=== PATIENT | male | born 1955 | race Caucasian/White ===

== ENCOUNTER 2022-08-15 17:53 | Emergency (ER) | payer MEDICARE, MEDICAID, SELFPAY ==
[2022-08-15] VITALS (18 sets, daily range): BP systolic 125–150; BP diastolic 64–85; PULSE 67–98; RESP 12–24; TEMP 36.4; O2SAT 94–98
--- NOTE | ~2022-08-15 | XR_ITS ---
EXAMINATION: XR chest 2V DATE: 08/15/2022 18:45 INDICATION: Chest pain TECHNIQUE: frontal and lateral views of the chest were obtained. COMPARISON: None FINDINGS: Mild increased interstitial pattern in the bilateral lower lung zones with some bronchial wall thicke celina which could be due to bronchitis or mild pulmonary edema. No other airspace opacities, pleural e ffusion or pneumothorax. The cardiomediastinal silhouette is normal. Left pectoral implantable cardia c monitor. IMPRESSION: 1. Mild increased interstitial pattern with some bronchial wall thickening in the lower lung zones wh ich could be due to bronchitis or mild pulmonary edema. Reviewed, dictated and finalized at location A. IMPRESSION: 1. Mild increased interstitial pattern with some bronchial wall thickening in t he lower lung zones which could be due to bronchitis or mild pulmonary edema.
--- NOTE | ~2022-08-15 | CT_ITS ---
EXAMINATION: CTA chest PE protocol DATE: 08/15/2022 20:39 INDICATION: Chest pain, shortness of breath and elevated d-dimer. TECHNIQUE: Computed tomography (CT) pulmonary angiogram of the chest was performed with 100 mL Omnipa que-350 intravenous contrast. Additional 3D reconstructions utilizing coronal maximum intensity proje ction (MIP) were performed. The dose-length product was 824.07 mGy-cm. COMPARISON: None FINDINGS: Excellent contrast opacification of the pulmonary arteries. There is mild streak artifact from dense contrast in the superior vena cava and right atrium. Minimal scattered respiratory motion artifact wh ich does not limit evaluation. No pulmonary embolism. Calcified right lower lobe nodule and calcified mediastinal lymph node consistent with old granulomatous disease. Mild dependent atelectasis in the right upper and bilateral lower lobes. No pneumonia, pulmonary edema, pleural effusion or pneumothora x. Heart size is normal. Atherosclerotic coronary artery calcifications. No pericardial effusion. Tho racic aorta is normal in caliber with no dissection. Small amount of fluid in the mid esophagus which could be related to reflux. No pathologically enlarged thoracic lymphadenopathy. Cholecystectomy cli ps the gallbladder fossa. Suture line along the proximal colon. Mild thoracic dextrocurvature with mi ld to moderate spondylosis. IMPRESSION: 1. No pulmonary embolism or other acute cardiopulmonary disease. Reviewed, dictated and finalized at location A.
--- NOTE | 2022-08-15 18:15 | ECG_ITS ---
Measurements Intervals [place] Rate: 67 P: 58 IL: 164 QRS: -38 QRSD: 112 T: 46 QT: 370 QTc: 391 Interpretive Statements SINUS RHYTHM MARKED LEFT AXIS DEVIATION [QRS AXIS < -30] NO PREVIOUS ECG AVAILABLE FOR COMPARISON Electronically Signed On 08-15-2022 18:56:13 CDT by Gayle Mcdonnell M.D.
--- NOTE | 2022-08-15 18:19 | ED.CHESTPAIN ---
HPI - Chest Pain General Chief Complaint: Chest Pain <NEETU Patel Last Filed: 08/16/22 01:10> Stated Complaint: CP and SOB <NEETU Patel Last Filed: 08/16/22 01:10> Time Seen by Provider: 08/15/22 18:12 <NEETU Patel Last Filed: 08/16/22 01:10> Source: patient <NEETU Patel Last Filed: 08/16/22 01:10> Mode of arrival: EMS <NEETU Patel Filed: 08/16/22 01:10> Limitations: no limitations <NEETU Patel Last Filed: 08/16/22 01:10> History of Present Illness HPI narrative: Patient is a 66 y/o male who presents to the ED via EMS with c/o CP. Patient reports he was sitting down watching TV approximately 1 hour prior to arrival when he developed midsternal and left-sided chest pain along w/ shortness of breath. He states pain radiated through to his back and left shoulder. He did not try anything for the pain but was given nitroglycerin by EMS which did not improve his pain. Patient states having a similar pain 1 year ago when he reportedly had an IA and CVA. Patient does not follow with a roll skinner. He also reported having some epigastric abdominal pain, but denied nausea, vomiting, fevers, recent cough or cold symptoms, pain or new swelling in legs. Patient is a resident of [facility]. Hx of COPD, chronically on 3L NC. <NEETU Patel Last Filed: 08/16/22 01:10> Related Data Allergies/Adverse Reactions: Allergies Allergy/AdvReac Type Severity Reaction Status Date / Time aspirin Allergy Rash Verified 08/15/22 18:17 ibuprofen Allergy Rash Verified 08/15/22 20:10 Penicillins Allergy Rash Verified 08/15/22 18:17 Sulfa (Sulfonamide Allergy Rash Verified 08/15/22 18:17 Antibiotics) <NEETU Patel Last Filed: 08/16/22 01:10> Review of Systems Review of Systems: CONSTITUTIONAL: Denies fever, chills, or sweats. ENT: Denies rhinorrhea, congestion, sore throat, or otalgia. CARDIOVASCULAR: Reports L sided CP. Denies palpitations or BLE edema. RESPIRATORY: Reports dyspnea. Denies cough. GASTROINTESTINAL: Reports epigastric pain. Denies nausea, vomiting, or diarrhea. MUSCULOSKELETAL: Reports back pain and left shoulder pain from CP. <Mohini Jimenez PA-C - Last Filed: 08/16/22 01:10> All systems reviewed & are unremarkable except as noted in HPI and below <Mohini Jimenez PA-C - Last Filed: 08/16/22 01:10> [facility], LAT[facility] Past Medical History Medical History: Medical History (Updated 08/17/22 @ 00:00 by Matthew Taylor) Chronic respiratory failure with hypoxia COPD (chronic obstructive pulmonary disease) Coronary artery disease CVA (cerebral vascular accident) Dementia GERD (gastroesophageal reflux disease) HLD (hyperlipidemia) HTN (hypertension) On home O2 <Mohini Jimenez PA-C - Last Filed: 08/16/22 01:10> Surgical History Surgical History: Surgical History (Updated 08/15/22 @ 22:45 by Mohini Jimenez PA-C) History of coronary artery stent placement <Mohini Jimenez PA-C - Last Filed: 08/16/22 01:10> Social History Social History: Social History (Updated 08/15/22 @ 22:45 by Mohini Jimenez PA-C) Smoking status: Former smoker Living arrangements: assisted living <Mohini Jimenez PA-C - Last Filed: 08/16/22 01:10> Exam Narrative: GENERAL: Well appearing, morbidly obese, non-toxic, in no acute distress. HEAD: Normocephalic, atraumatic. NECK: Supple. No adenopathy, no masses. RESPIRATORY: Airway patent, respirations nonlabored. Clear to auscultation bilaterally, no rales, rhonchi, wheezing. No distress on 3L NC. CARDIOVASCULAR: Regular rate and rhythm without murmurs, rubs, or gallops. Peripheral pulses 2+ and equal bilaterally. ABDOMINAL: Soft, no significant tenderness to palpation. Nondistended, no hepatosplenomegaly. Normoactive BS. MUSCULOSKELETAL: Moves all extremiti
--- NOTE | 2022-08-15 18:56 | PC.NURSE ---
Addendum entered by Pamela Recinos RN 08/15/22 18:58: MD informed. Original Note: Labs were being drawn on pt. Vein blew. Pt refused to be stuck again to get IV access or further labs.
[2022-08-15 19:24] LABS: Basophils Percent Auto 0.5 % (0.2-1.2); Eosinophils Absolute Auto 0.6 K/mm3 (0-0.3); Eosinophils Percent Auto 6.9 % (0-4.4); Immature Granulocyte Absolute 0.03 K/mm3 (0.00-0.031); Immature Granulocyte Percent A 0.4 % (0-0.5); Lymphocytes Absolute Auto 1.21 K/mm3 (0.9-3.2); Lymphocytes Percent Auto 14.3 % (18.3-44.2); Mean Corpuscular Hemoglobin 28.2 pg (26-34); Mean Corpuscular Volume 91.1 fl (80-100); Mean Platelet Volume 10.4 fl (7.4-10.4); Monocytes Absolute Auto 0.8 K/mm3 (0.1-0.6); Monocytes Percent Auto 8.9 % (2.6-8.5); Neutrophils Absolute Auto 5.9 K/mm3 (1.3-6.7); Platelet Count Result 165 k/mm3 (150-375); Red Blood Count 4.61 M/mm3 (4.6-6.20); Red Cell Distribution Width 15.5 % (11.5-14.5); White Blood Count 8.5 K/mm3 (4.5-10.0)
[2022-08-15 19:35] LABS: INR 1.2; Partial Thromboplastin Time 36.7 SECONDS (22.3-36.8); Prothrombin Time 14.9 Seconds (11.1-14.7)
[2022-08-15 19:56] LABS: D Dimer 2.22 ug/mL (<0.48)
[2022-08-15 20:26] LABS: Alanine Aminotransferase 17 U/L (6-50); Albumin Level 3.8 g/dL (3.5-5.1); Alkaline Phosphatase 87 U/L (38-126); Anion Gap 13 mmol/L (8-16); Aspartate Amino Transferase 23 U/L (17-59); Bilirubin,Total 0.3 mg/dL (0.2-1.3); Blood Urea Nitrogen 21 mg/dL (9-20); Calcium 8.4 mg/dL (8.4-10.2); Carbon Dioxide 29 mmol/L (22-30); Chloride 102 mmol/L (98-107); Estimated CRCL calculation 103 ml/min; Estimated Glomerular Filt Rate > 60; Glucose 99 mg/dL (65-110); Lipase 56 U/L (23-300); Sodium 144 mmol/L (137-145)
[2022-08-15 20:38] LABS: NT Pro B Type Natriuretic Pept 56 pg/mL (5-100); Troponin I < 0.012 ng/mL (0.000-0.034)
[2022-08-15 21:49] LABS: Troponin I < 0.012 ng/mL (0.000-0.034)
--- NOTE | 2022-08-15 23:26 | PC.NURSE ---
[facility] called multiple times by this RN, with no answer and phone disconnecting each time. When staff at nursing station 1 finally answered phone, this RN instructed them that pt would be returning to facility and they could call me if they had questions, but that I did not have time to be put on hold while they attempted to figure out which jones pt was on. Staff argumentative with this RN, stating I don't know who you think you're talking to but I'm not the one. This RN then hung up phone. [facility] called for EMS transport. ETA [id number].
[2022-08-16 00:01] VITALS: PULSE 70; RESP 14
[2022-08-16 00:16] VITALS: PULSE 69; RESP 19
--- NOTE | 2022-08-16 00:21 | PC.NURSE ---
[facility] called with ETA update of [id number]
[2022-08-16 00:31] VITALS: PULSE 65; RESP 20
[2022-08-16 00:53] VITALS: BP 135/78; PULSE 77; RESP 21; O2SAT 98
--- NOTE | 2022-08-16 03:00 | PC.NURSE ---
Report received from YAMILETH Celestin. Assumed care of patient at this time. Patient awaiting EMS arrival to take him back home.
[2022-08-16 03:19] VITALS: BP 158/84; PULSE 75; O2SAT 96
--- NOTE | 2022-08-16 05:12 | PC.NURSE ---
called [facility] for ETA update. ETA [id number]
--- NOTE | 2022-08-16 06:49 | PC.NURSE ---
called [facility] for ETA update. ETA 10 minutes
--- NOTE | 2022-08-16 06:55 | PC.NURSE ---
[facility] here.
[2022-08-16 06:57] VITALS: BP 153/86; PULSE 90; RESP 20; O2SAT 96
== END 2022-08-16 07:04 ==
PROVIDERS: Physician Assistant; Emergency Provider Emergency Medicine
DX: R07.89 Other chest pain (principal); J44.9 Chronic obstructive pulmonary disease, unspecified; J96.11 Chronic respiratory failure with hypoxia; I25.10 Atherosclerotic heart disease of native coronary artery without angina pectoris; I10 Essential (primary) hypertension; F03.90 Unspecified dementia, unspecified severity, without behavioral disturbance, psychotic disturbance, mood disturbance, and anxiety; E78.5 Hyperlipidemia, unspecified; K21.9 Gastro-esophageal reflux disease without esophagitis; Z86.73 Personal history of transient ischemic attack (TIA), and cerebral infarction without residual deficits; Z99.81 Dependence on supplemental oxygen; Z95.5 Presence of coronary angioplasty implant and graft; Z87.891 Personal history of nicotine dependence
CPT/HCPCS: 36415; 71046; 71275; 80053; 83690; 83880; 84484; 85025; 85380; 85610; 85730; 93005; 96365; 99284; J0131; Q9967

== ENCOUNTER 2022-08-21 15:31 | Inpatient (IN) | payer MEDICARE, MEDICAID, SELFPAY ==
[2022-08-21] VITALS (21 sets, daily range): BP systolic 103–166; BP diastolic 61–96; PULSE 71–94; RESP 14–22; TEMP 36.2–36.6; O2SAT 92–99; BMI 39.6
--- NOTE | ~2022-08-21 | XR_ITS ---
EXAMINATION: XR chest 1V portable DATE: 08/21/2022 16:21 INDICATION: Shortness of breath. TECHNIQUE: A single frontal view of the chest was obtained. COMPARISON: Chest 2 views 08/15/2022, chest CT 08/15/2022 FINDINGS: There is mild atelectasis in right lower lung zone. No pleural effusion or pneumothorax. Th e heart size is normal. There is an electronic implant overlying left chest wall. IMPRESSION: 1. Mild atelectasis in right lower lung zone. Reviewed, dictated and finalized at location A.
--- NOTE | ~2022-08-21 | NM_ITS ---
EXAMINATION: NM ciara stress w perfusion DATE: 08/24/2022 12:19 INDICATION: Chest pain TECHNIQUE: Rest images were obtained following intravenous administration of 10.2 mCi Tc99m tetrofosm in (Myoview). The patient was infused intravenously with Lexiscan (Regadenoson). Then, 33.7 mCi Tc99m tetrofosmin (Myoview) was administered intravenously, and stress images were obtained. Data was phoebe nstructed into short axis and horizontal and vertical long axis SPECT images. Gated SPECT images were also obtained. COMPARISON: None. FINDINGS: There is no definite reversible or fixed perfusion abnormality to suggest ischemia or infar ction. There is normal left ventricular chamber size, wall motion and ejection fraction. Left ventr icular ejection fraction measures 52%. IMPRESSION: 1. Normal myocardial perfusion at rest and during stress. 2. Left ventricular ejection fraction measuring 52%. Reviewed, dictated and finalized at location B.
--- NOTE | 2022-08-21 15:44 | ED.SOB ---
HPI - SOB/Dyspnea General Chief Complaint: Shortness of Breath/Dyspnea Stated Complaint: SOB, CP Time Seen by Provider: 08/21/22 15:41 Source: patient, EMS and RN notes reviewed Mode of arrival: EMS Limitations: no limitations History of Present Illness HPI Narrative: 67 years old white female [facility] because while sitting watching TV developed sudden onset of headache, chest pain and shortness of breath 1 hour prior to arrival to the emergency room. Received 3 nitroglycerin by ambulance without any improvement. Patient had similar symptoms 1 year ago with a diagnosis of CVA and [place]. History of hyperlipidemia, hypertension, dementia, GERD, chronic respiratory failure with hypoxia, coronary artery disease, CVA, COPD. Patient on Plavix and oxygen by nasal cannula 2 L. Patient reports some coughing and nasal and postnasal discharge in the last 2 days. Related Data Allergies Allergy/AdvReac Type Severity Reaction Status Date / Time aspirin Allergy Rash Verified 08/15/22 18:17 ibuprofen Allergy Rash Verified 08/15/22 20:10 Penicillins Allergy Rash Verified 08/15/22 18:17 Sulfa (Sulfonamide Allergy Rash Verified 08/15/22 18:17 Antibiotics) tetracycline Allergy Rash Verified 08/21/22 15:49 Review of Systems Review of Systems: All systems reviewed & are unremarkable except as noted in HPI and below PMFSH Past Medical History Medical History Chronic respiratory failure with hypoxia COPD (chronic obstructive pulmonary disease) Coronary artery disease CVA (cerebral vascular accident) Dementia GERD (gastroesophageal reflux disease) HLD (hyperlipidemia) HTN (hypertension) On home O2 Surgical History Surgical History History of coronary artery stent placement Social History Social History Smoking status: Former smoker Exam Narrative: General appearance: Well-developed, well-nourished, nasal cannula on, does not look in pain or distress. Skin: Normal color Head: Normocephalic, nontraumatic Eyes: Clear conjunctiva ENT: Oropharynx normal, ears normal, nose normal Neck: Supple, nontender Chest and respiratory: Airway patent, no respiratory distress, no accessory muscle use Heart: Regular rate/rhythm Abdomen: Soft, diffuse chronic tenderness, surgical scars, no organomegaly, quiet bowel sounds Vascular: Normal peripheral pulses, normal capillary refill. Musculoskeletal: Normal range of motion, nontender back Neurologic: Alert and oriented ?3, BUDGET ACCOUNTANT is normal as tested, no gross motor deficit Course Course Emergency Course: Patient feeling much better, currently denying any symptoms, work-up today showed no significant finding to explain his presentation, EKG today was read by Dr. Cottrell and stated that patient have new finding compared to the last EKG on August 15, which is left anterior fascicular block, possible myocardial infarction. Patient will be admitted for observation. Vital Signs Vital signs: Vital Signs Temperature 36.2 C L 08/21/22 15:35 Pulse Rate 88 08/21/22 15:35 Respiratory Rate 20 08/21/22 15:35 Blood Pressure 103/61 08/21/22 15:35 Pulse Oximetry 95 08/21/22 15:35 Oxygen Delivery Nasal Cannula 08/21/22 15:35 Oxygen Flow Rate 2 08/21/22 15:35 Temperature 36.2 C L 08/21/22 15:35 Pulse Rate 75 08/21/22 17:15 Respiratory Rate 14 08/21/22 17:00 Blood Pressure 124/70 08/21/22 16:01 Pulse Oximetry 92 08/21/22 17:15 Oxygen Delivery Nasal Cannula 08/21/22 15:35 Oxygen Flow Rate 2 08/21/22 15:35
--- NOTE | 2022-08-21 15:46 | ECG_ITS ---
Measurements Intervals [place] Rate: 82 P: 46 IL: 159 QRS: -52 QRSD: 119 T: 27 QT: 396 QTc: 465 Interpretive Statements SINUS RHYTHM BASELINE ARTIFACT LOW QRS VOLTAGE IN PRECORDIAL LEADS PATTERN CONSISTENT WITH PULMONARY DISEASE INCOMPLETE RIGHT BUNDLE BRANCH BLOCK LEFT ANTERIOR FASCICULAR BLOCK CANNOT RULE OUT INFERIOR MYOCARDIAL INFARCTION, OF INDETERMINATE AGE ABNORMAL ECG COMPARED TO ECG 08/15/2022 18:07:29 INCOMPLETE RIGHT BUNDLE-BRANCH BLOCK NOW PRESENT LEFT ANTERIOR FASCICULAR BLOCK NOW PRESENT POSSIBLE MYOCARDIAL INFARCT FINDING NOW PRESENT Electronically Signed On 08-21-2022 17:08:31 CDT by Yossi Cottrell M.D.
[2022-08-21 16:29] LABS: Alveolar/Arterial O2 Gradient 76.7 mmHg; Base Excess ABG 6.3 mEq/l (+/-2.0); Fractional Inspired Oxygen 28 %; HCO3 ABG 31.6 mEq/l (22.0-26.0); Oxygen Content ABG 17.1 %vol (16.0-22.0); Oxygen Saturation ABG 93.5 % (95.0-100.0); PCO2 ABG 48.2 mmHg (35.0-45.0); PO2 ABG 66.1 mmHg (80.0-100.0); PO2 FiO2 Ratio Arterial Blood 2.36 %; Total Hemoglobin 13.2 g/dL (12.0-18.0); pH ABG 7.434 (7.350-7.450)
[2022-08-21 16:32] LABS: Device NASAL CANNULA; Modified Allen's Test Pass; Site Drawn RIGHT RADIAL
[2022-08-21 16:44] LABS: Basophils Percent Auto 0.4 % (0.2-1.2); Eosinophils Absolute Auto 0.7 K/mm3 (0-0.3); Eosinophils Percent Auto 8.1 % (0-4.4); Hematocrit 41.1 % (42.0-52.0); Hemoglobin 12.6 g/dL (14.0-18.0); Immature Granulocyte Absolute 0.02 K/mm3 (0.00-0.031); Immature Granulocyte Percent A 0.2 % (0-0.5); Lymphocytes Absolute Auto 1.06 K/mm3 (0.9-3.2); Lymphocytes Percent Auto 12.5 % (18.3-44.2); Mean Corpuscular HGB Conc 30.7 g/dl (32-36); Mean Corpuscular Hemoglobin 28.4 pg (26-34); Mean Corpuscular Volume 92.6 fl (80-100); Mean Platelet Volume 11.4 fl (7.4-10.4); Monocytes Absolute Auto 0.6 K/mm3 (0.1-0.6); Monocytes Percent Auto 7.2 % (2.6-8.5); Neutrophils Absolute Auto 6.1 K/mm3 (1.3-6.7); Neutrophils Percent Auto 71.6 % (45.5-73.1); Platelet Count Result 176 k/mm3 (150-375); Red Blood Count 4.44 M/mm3 (4.6-6.20); Red Cell Distribution Width 15.9 % (11.5-14.5); White Blood Count 8.5 K/mm3 (4.5-10.0)
[2022-08-21 17:03] LABS: INR 1.1; Prothrombin Time 13.9 Seconds (11.1-14.7)
[2022-08-21 17:04] LABS: Partial Thromboplastin Time 33.7 SECONDS (22.3-36.8)
[2022-08-21 17:05] LABS: Troponin I < 0.012 ng/mL (0.000-0.034)
[2022-08-21 17:06] LABS: NT Pro B Type Natriuretic Pept 93 pg/mL (5-100)
[2022-08-21 17:09] LABS: Alanine Aminotransferase 19 U/L (6-50); Albumin Level 3.7 g/dL (3.5-5.1); Alkaline Phosphatase 82 U/L (38-126); Anion Gap 7 mmol/L (8-16); Aspartate Amino Transferase 29 U/L (17-59); Bilirubin,Total 0.5 mg/dL (0.2-1.3); Blood Urea Nitrogen 17 mg/dL (9-20); Carbon Dioxide 32 mmol/L (22-30); Chloride 101 mmol/L (98-107); Estimated CRCL calculation 100 ml/min; Estimated Glomerular Filt Rate > 60; Glucose 141 mg/dL (65-110); Potassium 4.5 mmol/L (3.4-5.0); Sodium 140 mmol/L (137-145)
[2022-08-21 17:29] LABS: Influenza A QL RT-PCR Negative (Negative); Influenza B QL RT-PCR Negative (Negative); SARS-CoV-2 RNA PCR Negative
[2022-08-21 20:12] LABS: Troponin I < 0.012 ng/mL (0.000-0.034)
--- NOTE | 2022-08-21 21:07 | PM.IMHP ---
H&P: HPI History of Present Illness Date/Time: 08/21/22 21:07 Chief Complaint: chest pain Narrative: this is a 67-year-old male patient who resides at [facility]. He was celebrating his birthday today by watching TV when he developed some chest pain. The patient had sudden onset of chest pain and shortness of breath 1 hour prior to coming to the emergency room. The patient received 3 nitroglycerins EN route to the hospital. The patient stated that the symptoms are comparable to when he had a heart event in the past. He has a history of hypertension, hyperlipidemia, GERD, chronic respiratory hypoxia on 2 L per nasal cannula, COPD, and dementia. He is answering my questions without difficulty although he is very hard of hearing. His H&H is 12.6 and 41.1. Patient's D-dimers 2.0 he which was 2.22 on 08/15/2022. The patient recently had a chest CT on 08/15/2022 which shows no pulmonary embolism or other cardiopulmonary disease. Today the patient a chest x-ray that shows mild atelectasis and right Lower lung zones. EKG was read as following SINUS RHYTHM BASELINE ARTIFACT LOW QRS VOLTAGE IN PRECORDIAL LEADS? PATTERN CONSISTENT WITH PULMONARY DISEASE INCOMPLETE RIGHT BUNDLE BRANCH BLOCK? LEFT ANTERIOR FASCICULAR BLOCK CANNOT RULE OUT INFERIOR MYOCARDIAL INFARCTION, OF INDETERMINATE AGE ABNORMAL ECG COMPARED TO ECG 08/15/2022 18:07:29 INCOMPLETE RIGHT BUNDLE-BRANCH BLOCK NOW PRESENT LEFT ANTERIOR FASCICULAR BLOCK NOW PRESENT POSSIBLE MYOCARDIAL INFARCT FINDING NOW PRESENT this is a slight change from his EKG on 08/15/2022. His troponin was negative so far. Patient was negative for influenza A/B and COVID. the patient is chronically on oxygen at 2 L per nasal cannula. The patient is being admitted for observation status on the date of service of 08/21/2022. Review of Systems Review of Systems: See HPI All systems reviewed & are unremarkable except as noted in HPI and below Constitutional: Constitutional: Reports as per HPI and Reports no additional constitutional complaints Eyes: Eyes: Reports as per HPI and Reports no additional eye complaints ENT: Reports system reviewed and no additional complaints, except as documented and Reports Normal hearing present Cardiovascular: Cardiovascular: Reports no additional cardiovascular complaints Respiratory: Respiratory: Reports no additional respiratory complaints and Reports no additional respiratory complaints Gastrointestinal: Gastrointestinal: Reports as per HPI and Reports no additional gastrointestinal complaints Musculoskeletal: Musculoskeletal: Reports no additional musculoskeletal complaints Integumentary/Breasts: Skin/Breast: Reports system reviewed and no additional complaints, except as docu and Reports as per HPI Neurologic: Reports system reviewed and no additional complaints, except as documented, Reports as per HPI and Reports Normal hearing present Psychiatric: Psychiatric: Reports no additional psychiatric complaints and Reports as per HPI Endocrine: Endocrine: Reports no additional endocrine complaints Hematologic/Lymphatic: Hematologic/Lymphatic: Reports no additional hematologic/lymphatic complaints Allergic/Immunologic: Allergic/Immunologic: Reports no additional allergic/immunologic complaints [facility] Past Medical History Medical History (Updated 08/21/22 @ 22:27 by Dania Cooley NP) Chronic respiratory failure with hypoxia Colon cancer COPD (chronic obstructive pulmonary disease) Coronary artery disease CVA (cerebral vascular accident) Dementia Depression DM2 (diabetes mellitus, type 2) Eczema GERD (gastroesophageal reflux disease) HLD (hyperlipidemia) HTN (hypertension) On home O2 Psoriasis Surgical History Surgical History History of appendectomy History of colectomy History of coronary artery stent placement 3 History of tonsillectomy Family History Family History (Review
--- NOTE | 2022-08-21 21:18 | ADMGEN ---
This patient, Gt Dubon, was admitted to IMU Room 205-01 at 2120. Patient/family oriented to hospital policies and general routines including ID bracelet, bed and alarms, visiting hours, pain management, procedures, bathroom and other care routines, personal items, smoking policy, room service/diet, and visiting hours. Information on how to activate the Rapid Response Team has been discussed. Patient/Family are encouraged to report perceived risks to care and to ask questions if they do not understand what they are told or what they should do.
[2022-08-21] MEDS: ACETAMINOPHEN 325 MG TABLET 650 MG PO (22:06)
[2022-08-21 22:40] LABS: Troponin I < 0.012 ng/mL (0.000-0.034)
[2022-08-21] MEDS: PENTOXIFYLLINE 400 MG TABCR PO (23:03)
[2022-08-21] MEDS: traZODone HCL 50 MG TABLET PO (23:04)
[2022-08-21] MEDS: RANOLAZINE 500 MG TAB.ER.12H PO (23:04)
[2022-08-21] MEDS: TAMSULOSIN HCL 0.4 MG CAPSULE PO (23:04)
[2022-08-21] MEDS: APIXABAN 5 MG TABLET PO (23:05)
[2022-08-21] MEDS: CITALOPRAM HYDROBROMIDE 20 MG TABLET PO (23:05)
[2022-08-21] MEDS: MEMANTINE 10 MG TABLET PO (23:06)
[2022-08-21] MEDS: DONEPEZIL HCL 10 MG TABLET PO (23:06)
[2022-08-21] MEDS: oxyCODONE HCL (*CRX) 5 MG TAB IR PO (23:11)
[2022-08-21] MEDS: INSULIN GLARGINE (*BKC) 100 UNITS/ML 28 UNITS SUB-Q (23:14)
[2022-08-22] VITALS (13 sets, daily range): BP systolic 109–134; BP diastolic 67–72; PULSE 62–106; RESP 16–22; TEMP 36.2–36.9; O2SAT 93–98
--- NOTE | 2022-08-22 | ECHO_ITS ---
Patient Info Name: Gt Dubon Age: 67 years : 1955 Gender: Male Ht: 72 in Wt: 291 lbs BSA: 2.64 m2 HR: 81 bpm BP: 109 / 72 mmHg Heart Rhythm: Sinus Rhythm Technical Quality: Poor Exam Date: 08/22/2022 8:12 AM Exam Location: [facility] Patient Status: Inpatient Admit Date: 08/21/2022 Staff Ordering Physician: Dania Cooley NP [place]: Michell Fried RDCS Attending Provider: Denny Erwin MD Referring Physician: Yasir NAYLOR; Exam Type: CA echo dop color flow w con Study Info Indications R07.9 - Chest pain, unspecified Complete two-dimensional, color flow and Doppler transthoracic echocardiogram is performed with contrast to opacify the left ventricle and to improve the deliniation of the left ventricle endocardial borders. Contrast/Agitated Saline Contrast/Ag. Saline: Definity Amount: 4.00 ml Reason for Poor Study: patient body habitus Summary 1. Technically difficult study with limited views. 2. Left ventricular systolic function appears to be mildly reduced, estimated at 40-45%, however this was a technically difficult study. Regional wall motion abnormalities cannot be excluded due to poor visualization of endocardial borders. 3. There is moderately increased left ventricular wall thickness. 4. The left ventricular diastolic function is grade I diastolic dysfunction. 5. Right ventricular systolic function is normal. 6. There is mild tricuspid valve regurgitation. Left Ventricle Left ventricular chamber dimension is normal. Left ventricular systolic function appears to be mildly reduced, estimated at 40-45%, however this was a technically difficult study. Regional wall motion abnormalities cannot be excluded due to poor visualization of endocardial borders. There is moderately increased left ventricular wall thickness. The left ventricular diastolic function is grade I diastolic dysfunction. Right Ventricle Right ventricular chamber dimension is normal. Right ventricular systolic function is normal. Left Atria Left atrial chamber dimension is normal. Right Atria Right atrial chamber dimension is normal. Atrial Septum Intact interatrial septum visualized by color flow imaging. Aortic Valve The aortic valve is probable trileaflet. There is no aortic valve stenosis. There is no aortic valve regurgitation. Pulmonic Valve The pulmonic valve is not well visualized. Mitral Valve The mitral valve has normal leaflets. There is no mitral valve stenosis. There is no mitral valve regurgitation. Tricuspid Valve The tricuspid valve leaflets are not well visualized. There is no significant tricuspid valve stenosis. There is mild tricuspid valve regurgitation. Pericardium/Pleural There is no pericardial effusion. Left Ventricular Outflow Tract Name Value Normal LVOT 2D LVOT Diameter 2.38 cm LVOT Doppler LVOT Peak Gradient 2 mmHg LVOT Mean Gradient 1 mmHg LVOT VTI 14.88 cm LVOT VTI/AV VTI Ratio
[2022-08-22 05:05] LABS: Basophils Percent Auto 0.4 % (0.2-1.2); Eosinophils Absolute Auto 0.7 K/mm3 (0-0.3); Eosinophils Percent Auto 9.8 % (0-4.4); Hematocrit 41.9 % (42.0-52.0); Immature Granulocyte Absolute 0.02 K/mm3 (0.00-0.031); Immature Granulocyte Percent A 0.3 % (0-0.5); Immature Platelet Fraction Pct 8.3 % (0.9-11.2); Lymphocytes Absolute Auto 1.31 K/mm3 (0.9-3.2); Lymphocytes Percent Auto 18.3 % (18.3-44.2); Mean Corpuscular Hemoglobin 29.1 pg (26-34); Mean Corpuscular Volume 93.7 fl (80-100); Monocytes Absolute Auto 0.6 K/mm3 (0.1-0.6); Monocytes Percent Auto 8.6 % (2.6-8.5); Neutrophils Absolute Auto 4.5 K/mm3 (1.3-6.7); Neutrophils Percent Auto 62.6 % (45.5-73.1); Platelet Count Result 144 k/mm3 (150-375); Red Blood Count 4.47 M/mm3 (4.6-6.20); Red Cell Distribution Width 15.9 % (11.5-14.5); White Blood Count 7.2 K/mm3 (4.5-10.0)
[2022-08-22 05:13] LABS: Hemoglobin A1C 7.3 % (<5.7)
[2022-08-22 05:15] LABS: Alanine Aminotransferase 19 U/L (6-50); Albumin Level 3.6 g/dL (3.5-5.1); Alkaline Phosphatase 90 U/L (38-126); Anion Gap 6 mmol/L (8-16); Aspartate Amino Transferase 26 U/L (17-59); Bilirubin,Total 0.4 mg/dL (0.2-1.3); Blood Urea Nitrogen 15 mg/dL (9-20); Calcium 8.1 mg/dL (8.4-10.2); Carbon Dioxide 32 mmol/L (22-30); Chloride 103 mmol/L (98-107); Estimated CRCL calculation 110 ml/min; Estimated Glomerular Filt Rate > 60; Glucose 107 mg/dL (65-110); Lactate Dehydrogenase 177 U/L (120-246); Lipase 65 U/L (23-300); Magnesium 1.7 mg/dL (1.6-2.3); Phosphorus 4.6 mg/dL (2.5-4.5); Sodium 141 mmol/L (137-145)
[2022-08-22 07:55] LABS: Glucose Point of Care 114 mg/dl (65-105)
[2022-08-22] MEDS: PERFLUTREN LIPID MICROSPHERES 1.5 ML VIAL DILUTED TO 10 ML TOTAL VOLUME IV PUSH (08:20)
[2022-08-22] MEDS: oxyCODONE HCL (*CRX) 5 MG TAB IR PO ×2 (10:37→18:09)
[2022-08-22] MEDS: ATORVASTATIN 40 MG TABLET 80 MG PO (10:38)
[2022-08-22] MEDS: LIPASE/AMYLASE/PROTEASE 12,000 UNITS CAP 1 CAP PO ×3 (10:38→18:00)
[2022-08-22] MEDS: MEMANTINE 10 MG TABLET PO ×2 (10:39→18:01)
[2022-08-22] MEDS: DIVALPROEX SODIUM ER 500 MG TAB.24H PO (10:39)
[2022-08-22] MEDS: ISOSORBIDE MONONITRATE 30 MG TAB.ER.24H PO (10:39)
[2022-08-22] MEDS: calcium polycarbophiL 625 MG TABLET 1250 MG PO ×2 (10:39→18:01)
[2022-08-22] MEDS: CHOLECALCIFEROL 1,000 UNITS TABLET 2000 UNITS PO (10:39)
[2022-08-22] MEDS: FOLIC ACID 1 MG TABLET PO (10:39)
[2022-08-22] MEDS: CLOPIDOGREL BISULFATE 75 MG TABLET PO (10:39)
[2022-08-22] MEDS: RANOLAZINE 500 MG TAB.ER.12H PO ×2 (10:40→18:00)
[2022-08-22] MEDS: APIXABAN 5 MG TABLET PO ×2 (10:40→18:00)
[2022-08-22] MEDS: PENTOXIFYLLINE 400 MG TABCR PO ×2 (10:40→18:01)
[2022-08-22] MEDS: PANTOPRAZOLE 40 MG TABLET PO (10:40)
--- NOTE | 2022-08-22 10:49 | PM.CNCAR ---
Assessment and Plan Assessment and plan (1) Chest pain: Code(s): R07.9 - Chest pain, unspecified Status: Acute (2) Coronary artery disease: Code(s): I25.10 - Atherosclerotic heart disease of [place] coronary artery without angina pectoris Status: Acute Assessment and Plan: EKG without ischemic changes. Troponins negative x 3. An echocardiogram has been ordered along with Lexiscan. Lexiscan will not be done until Wednesday. Given patient has not had repeat chest pain, negative troponins without ischemic ECG changes, this could be obtained as an outpatient. Not currently on ASA - has a rash allergy listed in chart. Would continue with Plavix, high-intensity statin, Imdur, Ranolazine which are his home medications. Patient is on Eliquis at home, but I do not see a history of atrial fibrillation, perhaps for his history of stroke? History of Present Illness History of Present Illness Consult date/time: 08/22/22 10:49 Requesting physician: Dania Cooley WELFARE DIRECTOR Consult reason: chest pain Reason For Visit: Chest pain, abnormal EKG Narrative: Patient is a 67-year-old male with a reported history of CAD s/p prior stents, hypertension, hyperlipidemia, GERD, chronic respiratory failure on home oxygen, COPD and dementia who presented with chest pain. Patient states he has 3 coronary stents, but cannot remember where his PCI was done or when. Patient states he was sitting yesterday evening and watching tv when he developed left sided chest pain. Chest pain lasted for 1 hour and resolved. Has not had chest pain since then. EKG without ischemic changes. Troponins are negative. An echocardiogram and lexiscan were already ordered. Patient has no complaints this morning, states he is hungry. Review of Systems Review of Systems: 12-point ROS obtained. Negative, unless stated in HPI. [facility] Past Medical History Medical History Chronic respiratory failure with hypoxia Colon cancer COPD (chronic obstructive pulmonary disease) Coronary artery disease CVA (cerebral vascular accident) Dementia Depression DM2 (diabetes mellitus, type 2) Eczema GERD (gastroesophageal reflux disease) HLD (hyperlipidemia) HTN (hypertension) On home O2 Psoriasis Surgical History Surgical History History of appendectomy History of colectomy History of coronary artery stent placement 3 History of tonsillectomy Family History Family History Father Acute myocardial infarction Cancer Mother Acute myocardial infarction Cancer Sibling Acute myocardial infarction Cancer Social History Social History Social History: The patient stated that he has been to the same woman for 50 yrs. However she does not live in [facility] with the patient as she has her own apartment. They have 2 children. He is a former smoker. He retired from being a regional flatbed truck driver. He denies any alcohol marijuana or illicit drugs. He does not have a durable power state's attorney for healthcare Code status DNR Smoking packs per day: 0 Smoking cigarettes per day: 0.0 Years smoked: 32 Smoking pack-years: 0.00 Smoking status: Former smoker Tobacco type: cigarettes Second hand tobacco smoke exposure: No Alcohol intake: former Drinks per week: 2 Substance use: never Substance use type: prescription drug Other substance usage details: percocet Last use: 08/20/2022 Has the Lack of Transportation Kept You From Medical Appointments or From Getting Medications?: No Within the Past 12 Months, Were You Worried Whether Your Food Would Run Out Before You Got Money to Buy More?: Never True What is Your Housing Situation Today?: I Have Housing Are You Worried That in the Next 2 Months, You May Not Have Your Own Housing to L
[2022-08-22 12:36] LABS: Glucose Point of Care 114 mg/dl (65-105)
--- NOTE | 2022-08-22 16:27 | PM.IMPN ---
Progress Note: A&P Assessment and Plan (1) Bacteremia: Code(s): R78.81 - Bacteremia Status: Acute Assessment and Plan: Patient is brought in from the skilled nursing with complaints of chest pain. He also had complaints of shortness of breath, cough and nasal congestion. No fevers. White count is normal. Blood cultures were collected. Chest x-ray shows mild atelectasis in right lower lung zones. Blood cultures have returned positive for Gram-positive cocci in clusters from the a remove bottle only with the 2nd set being positive in the a robotic and anaerobic bottles. Probably a contaminant. Will start vancomycin. Repeat blood cultures tomorrow. Follow-up on final ID and sensitivities. (2) Chest pain: Code(s): R07.9 - Chest pain, unspecified Status: Acute Assessment and Plan: Patient having atypical chest pain occurring at rest. EKG shows normal sinus rhythm with incomplete right bundle branch block, left anterior fascicular block and possible old inferior [place]. Family's findings actually a new when compared to EKG few days ago. Patient was here on 08/15/2022 for chest pain. He did have a positive D-dimer at that time but CTA of the chest was negative for PE. D-dimer was repeated and is positive again. Patient is on Eliquis on admission. D-dimer elevation could be related to bacteremia although felt less likely. Echocardiogram shows EF of 40-45%. There was poor visualization of the endocardial borders. He had grade 1 diastolic dysfunction. Plan for ischemic evaluation as an outpatient. If patient remains hospitalized on Wednesday, will perform Lexiscan that time. Appreciate cardiology input. Continue Plavix and Imdur. He is allergic to aspirin. (3) Chronic respiratory failure with hypoxia: Code(s): J96.11 - Chronic respiratory failure with hypoxia Status: Acute Assessment and Plan: Patient with chronic respiratory failure wearing 1-2 L chronically. Chest x-ray noted. He is at baseline. Continue to monitor. (4) COPD (chronic obstructive pulmonary disease): Code(s): J44.9 - Chronic obstructive pulmonary disease, unspecified Status: Acute Assessment and Plan: No wheezing. Not on inhalers at the facility. Continue to follow. (5) Coronary artery disease: Code(s): I25.10 - Atherosclerotic heart disease of [place] coronary artery without angina pectoris Status: Acute Assessment and Plan: Patient has a history of coronary disease with stent placement x3. Patient has multiple risk factors for coronary disease as well with hypertension, hyperlipidemia and diabetes. As above. (6) CVA (cerebral vascular accident): Code(s): I63.9 - Cerebral infarction, unspecified Status: Acute Assessment and Plan: Patient has a history of CVA. He is currently at a skilled nursing in long term care. Continue atorvastatin and Plavix. (7) Dementia: Code(s): F03.90 - Unspecified dementia, unspecified severity, without behavioral disturbance, psychotic disturbance, mood disturbance, and anxiety Status: Acute Assessment and Plan: Patient's history is unreliable given his known dementia. We have continued his Namenda and Aricept. (8) DM2 (diabetes mellitus, type 2): Code(s): E11.9 - Type 2 diabetes mellitus without complications Status: Acute Assessment and Plan: The patient's blood glucose was reviewed on 08/22 Glucose remains well controlled. Continue AccuCheks covering with sliding scale. Hypoglycemia protocol available as needed. Continue current medications. Check A1c (9) HTN (hypertension): Code(s): I10 - Essential (primary) hypertension Status: Acute Assessment and Plan: Patient's blood pressure was reviewed on 08/22 Blood pressure remains well controlled. Will continue current medications. Subjective Date/time seen: 08/22/22 16:27 Int
[2022-08-22 17:04] LABS: Glucose Point of Care 140 mg/dl (65-105)
[2022-08-22 19:56] LABS: Glucose Point of Care 201 mg/dl (65-105)
[2022-08-22] MEDS: INSULIN GLARGINE (*BKC) 100 UNITS/ML 28 UNITS SUB-Q (20:13)
[2022-08-22] MEDS: TAMSULOSIN HCL 0.4 MG CAPSULE PO (20:14)
[2022-08-22] MEDS: traZODone HCL 50 MG TABLET PO (20:14)
[2022-08-22] MEDS: CITALOPRAM HYDROBROMIDE 20 MG TABLET PO (20:14)
[2022-08-22] MEDS: DONEPEZIL HCL 10 MG TABLET PO (20:14)
[2022-08-23] VITALS (14 sets, daily range): BP systolic 125–139; BP diastolic 62–77; PULSE 61–79; RESP 16–24; TEMP 36.3–36.7; O2SAT 93–98
[2022-08-23 05:02] LABS: Hemoglobin 13.1 g/dL (14.0-18.0); Mean Corpuscular HGB Conc 30.5 g/dl (32-36); Mean Corpuscular Hemoglobin 28.2 pg (26-34); Mean Corpuscular Volume 92.5 fl (80-100); Mean Platelet Volume 10.6 fl (7.4-10.4); Platelet Count Result 162 k/mm3 (150-375); Red Blood Count 4.65 M/mm3 (4.6-6.20); Red Cell Distribution Width 15.9 % (11.5-14.5); White Blood Count 7.5 K/mm3 (4.5-10.0)
[2022-08-23 05:18] LABS: Anion Gap 12 mmol/L (8-16); Blood Urea Nitrogen 18 mg/dL (9-20); Calcium 8.2 mg/dL (8.4-10.2); Carbon Dioxide 31 mmol/L (22-30); Chloride 100 mmol/L (98-107); Estimated CRCL calculation 99 ml/min; Estimated Glomerular Filt Rate > 60; Glucose 96 mg/dL (65-110); Potassium 3.8 mmol/L (3.4-5.0); Sodium 143 mmol/L (137-145)
[2022-08-23 05:53] LABS: Procalcitonin 0.1 ng/mL
[2022-08-23] MEDS: oxyCODONE HCL (*CRX) 5 MG TAB IR PO ×2 (06:13→17:34)
[2022-08-23 07:51] LABS: Glucose Point of Care 153 mg/dl (65-105)
[2022-08-23] MEDS: calcium polycarbophiL 625 MG TABLET 1250 MG PO ×2 (10:15→17:32)
[2022-08-23] MEDS: LIPASE/AMYLASE/PROTEASE 12,000 UNITS CAP 1 CAP PO ×3 (10:16→17:31)
[2022-08-23] MEDS: MEMANTINE 10 MG TABLET PO ×2 (10:16→17:32)
[2022-08-23] MEDS: PANTOPRAZOLE 40 MG TABLET PO (10:16)
[2022-08-23] MEDS: RANOLAZINE 500 MG TAB.ER.12H PO ×2 (10:16→17:31)
[2022-08-23] MEDS: CLOPIDOGREL BISULFATE 75 MG TABLET PO (10:16)
[2022-08-23] MEDS: FOLIC ACID 1 MG TABLET PO (10:17)
[2022-08-23] MEDS: CHOLECALCIFEROL 1,000 UNITS TABLET 2000 UNITS PO (10:17)
[2022-08-23] MEDS: APIXABAN 5 MG TABLET PO ×2 (10:17→17:32)
[2022-08-23] MEDS: DIVALPROEX SODIUM ER 500 MG TAB.24H PO (10:17)
[2022-08-23] MEDS: ATORVASTATIN 40 MG TABLET 80 MG PO (10:18)
[2022-08-23] MEDS: ISOSORBIDE MONONITRATE 30 MG TAB.ER.24H PO (10:18)
[2022-08-23] MEDS: PENTOXIFYLLINE 400 MG TABCR PO ×2 (10:20→17:32)
[2022-08-23 12:19] LABS: Glucose Point of Care 161 mg/dl (65-105)
--- NOTE | 2022-08-23 15:57 | PM.IMPN ---
Progress Note: A&P Assessment and Plan (1) Bacteremia: Code(s): R78.81 - Bacteremia Status: Acute Assessment and Plan: [facility] is [facility] from the [facility] with complaints of chest pain. He also had complaints of shortness of breath, cough and nasal congestion. No fevers. White count was normal. Blood cultures were collected. Chest x-ray shows mild atelectasis in right lower lung zones. Blood cultures have returned positive for Gram-positive cocci in clusters; Vancomycin added. ID showing Staph Epi. Repeat blood cultures ordered. Follow-up on sensitivities. Echo showing no obvious vegetations. If repeat BCx negative, will stop abx. (2) Chest pain: Code(s): R07.9 - Chest pain, unspecified Status: Acute Assessment and Plan: Patient having atypical chest pain occurring at rest. Patient was here on 08/15/2022 for atypical chest pain and had a positive D-dimer; CTA of the chest was negative for PE. EKG here shows normal sinus rhythm with incomplete right bundle branch block, left anterior fascicular block and possible old inferior [place]. These findings actually our new when compared to EKG few days ago. D-dimer was repeated and is positive again. Patient was on Eliquis on admission. Echo shows EF of 40-45%. There was poor visualization of the endocardial borders. He had grade 1 diastolic dysfunction. Plan for ischemic evaluation tomorrow with Lexiscan. Appreciate cardiology input. Continue Plavix and Imdur. He is allergic to aspirin. (3) Chronic respiratory failure with hypoxia: Code(s): J96.11 - Chronic respiratory failure with hypoxia Status: Acute Assessment and Plan: Patient with chronic respiratory failure wearing 1-2 L chronically. Chest x-ray noted. He is at baseline. Continue to monitor. (4) COPD (chronic obstructive pulmonary disease): Code(s): J44.9 - Chronic obstructive pulmonary disease, unspecified Status: Acute Assessment and Plan: No wheezing. Not on inhalers at the facility. Continue to follow. (5) Coronary artery disease: Code(s): I25.10 - Atherosclerotic heart disease of [place] coronary artery without angina pectoris Status: Acute Assessment and Plan: Patient has a history of coronary disease with stent placement x3. Patient has multiple risk factors for coronary disease as well with hypertension, hyperlipidemia and diabetes. As above. (6) CVA (cerebral vascular accident): Code(s): I63.9 - Cerebral infarction, unspecified Status: Acute Assessment and Plan: Patient has a history of CVA. [facility] is currently at a [facility] in [facility] living care. Continue atorvastatin and Plavix. (7) Dementia: Code(s): F03.90 - Unspecified dementia, unspecified severity, without behavioral disturbance, psychotic disturbance, mood disturbance, and anxiety Status: Acute Assessment and Plan: Patient's history is unreliable given his known dementia. We have continued his Namenda and Aricept. (8) DM2 (diabetes mellitus, type 2): Code(s): E11.9 - Type 2 diabetes mellitus without complications Status: Acute Assessment and Plan: A1c 7.3. The patient's blood glucose was reviewed on 08/23 Glucose remains well controlled. Continue AccuCheks covering with sliding scale. Hypoglycemia protocol available as needed. Continue current medications. (9) HTN (hypertension): Code(s): I10 - Essential (primary) hypertension Status: Acute Assessment and Plan: Patient's blood pressure was reviewed on 08/23 Blood pressure remains well controlled. Will continue current medications. Plan Recently hospitalized at [facility]. Will request records. Subjective Date/time seen: 08/23/22 15:57 Interval history: 67yo male with DM, HTN, COPD and chronic respiratory failure here for chest pain. Patient alert but confused. He states he slept
[2022-08-23 16:41] LABS: Glucose Point of Care 128 mg/dl (65-105)
[2022-08-23 20:23] LABS: Vancomycin Trough 22.8 ug/mL (10.0-20.0)
[2022-08-23 21:22] LABS: Glucose Point of Care 161 mg/dl (65-105)
[2022-08-23] MEDS: TAMSULOSIN HCL 0.4 MG CAPSULE PO (21:39)
[2022-08-23] MEDS: DONEPEZIL HCL 10 MG TABLET PO (21:39)
[2022-08-23] MEDS: traZODone HCL 50 MG TABLET PO (21:39)
[2022-08-23] MEDS: CITALOPRAM HYDROBROMIDE 20 MG TABLET PO (21:39)
[2022-08-23] MEDS: INSULIN GLARGINE (*BKC) 100 UNITS/ML 28 UNITS SUB-Q (21:50)
[2022-08-24] VITALS (12 sets, daily range): BP systolic 127–156; BP diastolic 67–84; PULSE 60–105; RESP 18–22; TEMP 36–36.6; O2SAT 93–97
[2022-08-24 06:14] LABS: Estimated CRCL calculation 99 ml/min; Estimated Glomerular Filt Rate > 60
[2022-08-24] MEDS: oxyCODONE HCL (*CRX) 5 MG TAB IR PO ×3 (06:15→21:05)
[2022-08-24] MEDS: PENTOXIFYLLINE 400 MG TABCR PO ×2 (08:18→17:43)
[2022-08-24] MEDS: calcium polycarbophiL 625 MG TABLET 1250 MG PO ×2 (08:18→17:42)
[2022-08-24] MEDS: PANTOPRAZOLE 40 MG TABLET PO (08:18)
[2022-08-24] MEDS: CHOLECALCIFEROL 1,000 UNITS TABLET 2000 UNITS PO (08:18)
[2022-08-24] MEDS: LIPASE/AMYLASE/PROTEASE 12,000 UNITS CAP 1 CAP PO ×3 (08:18→17:43)
[2022-08-24] MEDS: ATORVASTATIN 40 MG TABLET 80 MG PO (08:18)
[2022-08-24] MEDS: FOLIC ACID 1 MG TABLET PO (08:18)
[2022-08-24] MEDS: DIVALPROEX SODIUM ER 500 MG TAB.24H PO (08:19)
[2022-08-24] MEDS: MEMANTINE 10 MG TABLET PO ×2 (08:19→17:42)
[2022-08-24] MEDS: ISOSORBIDE MONONITRATE 30 MG TAB.ER.24H PO (08:19)
[2022-08-24] MEDS: RANOLAZINE 500 MG TAB.ER.12H PO ×2 (08:19→17:43)
[2022-08-24] MEDS: APIXABAN 5 MG TABLET PO ×2 (08:19→17:42)
[2022-08-24] MEDS: CLOPIDOGREL BISULFATE 75 MG TABLET PO (08:19)
--- NOTE | 2022-08-24 08:56 | PM.PNCARD ---
Progress Note: A&P Assessment and Plan (1) Chest pain: Code(s): R07.9 - Chest pain, unspecified Status: Acute Plan 67-year-old man with reported history of coronary disease with previous PCI planning for a Lexiscan stress test today because of episodes of intermittent chest pain that are clinically atypical of angina. Further recommendations will be pending those results. Presumably his coronary disease will be treated conservatively/medically given his DNR orders on the chart Gt Marks MD [facility] Subjective Date/time seen: Date of service: 08/24/22 08:56 Interval history: Follow-up visit in this 67-year-old man with: History of chest pain episodes which clinically are atypical of angina. He reports a history of coronary artery disease with PCI elsewhere. Details of this are unknown available to us here at [place]. He is stable this morning offers no significant complaints asking when his stress test is going to take place this morning. Exam Const: Other: Obese man resting comfortably watching television HENMT: Mouth: Yes moist mucous membranes Eyes: Sclera: sclerae normal Pupils: Equal, round and reactive pupils present Neck: Neck: supple and no JVD Resp: Effort & Inspection: normal respiratory effort Auscultation: clear to auscultation bilaterally Cardio: Rate: regular rate Rhythm: regular rhythm Other: PMI difficult to palpate no audible murmur or gallop GI: GI Palp: Yes Soft to palpation Auscultation: normal bowel sounds Skin: General skin exam: normal color Neuro: Other: Alert and oriented x3 Extrem: Other: No edema, adequate perfusion Objective Data Vital Signs Vital Signs: Vital Signs - 24 hr 08/23/22 12:00 08/23/22 12:00 08/23/22 10:00 Temperature 36.3 C L Pulse Rate 65 69 Respiratory Rate 16 Blood Pressure 125/64 Pulse Oximetry 98 98 Oxygen Delivery Nasal Cannula Oxygen Flow Rate 2 08/23/22 12:00 08/23/22 14:00 08/23/22 16:00 Temperature Pulse Rate 73 77 65 Respiratory Rate Blood Pressure Pulse Oximetry Oxygen Delivery Oxygen Flow Rate 08/23/22 16:00 08/23/22 18:00 08/23/22 16:00 Temperature 36.3 C L Pulse Rate 73 75 Respiratory Rate 20 Blood Pressure 131/72 Pulse Oximetry 97 96 Oxygen Delivery Nasal Cannula Oxygen Flow Rate 2 08/23/22 19:35 08/23/22 23:36 08/23/22 20:00 Temperature 36.6 C 36.7 C Pulse Rate 74 72 Respiratory Rate 20 24 H Blood Pressure 128/62 139/73 Pulse Oximetry 95 98 98 Oxygen Delivery Nasal Cannula Oxygen Flow Rate 2 08/24/22 00:00 08/23/22 20:00 08/23/22 22:00 Temperature Pulse Rate 65 68 Respiratory Rate Blood Pressure Pulse Oximetry 97 Oxygen Delivery Nasal Cannula Oxygen Flow Rate 2 08/24/22 00:00 08/24/22 02:00 08/24/22 04:00 Temperature Pulse Rate 66 73 63 Respiratory Rate Blood Pressure Pulse Oximetry Oxygen Delivery Oxygen Flow Rate 08/24/22 04:00 08/24/22 04:00 08/24/22 06:00 Temperature 36.5 C Pulse Rate 76 60 Respiratory Rate 22 H Blood Pressure 136/73 Pulse Oximetry 96 96 Oxygen Delivery Nasal Cannula Oxygen Flow Rate 2 Intake/Output Intake/Output: Intake & Output 08/21/22 08/22/22 08/23/22 08/24/22 23:59 23:59 23:59 23:59 Intake Total 1940 2220 Output Total 302 1051 850 Balance 1638 1169 -850 Meds/Results Medications: Active Medications Generic Name Dose Route Start Last Admin Trade Name Freq PRN Reason Stop Dose Admin Acetaminophen 650 mg 08/21/22 18:01 08/21/22 22:06 Acetaminophen 325 Mg Tablet PO 650 mg Q4H PRN Administration Mild Pain (1-3) or Fever Albuterol 2 puff 08/21/22 22:23 Albuterol Sulfate (*Sp) Aerosol 1 Puff INHALATION Q6HRT PRN Shortness Of Breath Lipase/Protease/Amylase 1 cap 08/22/22 08:00 08/24/22 08:18 Lipase/Amylase/Protease 12,000 Units Cap PO 1 cap TIDWM [facility] Administrati
[2022-08-24 09:29] LABS: Glucose Point of Care 111 mg/dl (65-105)
[2022-08-24 13:58] LABS: Glucose Point of Care 132 mg/dl (65-105)
[2022-08-24 16:49] LABS: Glucose Point of Care 145 mg/dl (65-105)
--- NOTE | 2022-08-24 16:50 | PM.IMPN ---
Progress Note: A&P Assessment and Plan (1) Bacteremia: Code(s): R78.81 - Bacteremia Status: Acute Assessment and Plan: Patient is brought in from the [facility] with complaints of chest pain, shortness of breath, cough and nasal congestion. No fevers. White count was normal. Blood cultures were collected. Chest x-ray shows mild atelectasis in right lower lung zones. Blood cultures (2of2) have returned positive for Gram-positive cocci in clusters; Vancomycin started. ID showing Staph Epi. Repeat blood cultures (1of2) positive for gram positive cocci in clusters. Follow-up on sensitivities. Echo showing no obvious vegetations. Contineu IV abx. Repeat BCx in the morning. If unable to obtain negative cultures, consider EDOUARD. (2) Chest pain: Code(s): R07.9 - Chest pain, unspecified Status: Acute Assessment and Plan: Patient having atypical chest pain occurring at rest. Patient was here on 08/15/2022 for atypical chest pain and had a positive D-dimer; CTA of the chest was negative for PE. EKG here shows normal sinus rhythm with incomplete right bundle branch block, left anterior fascicular block and possible old inferior [place]. These findings actually are new when compared to EKG few days ago. D-dimer was repeated and is positive again. Patient was on Eliquis on admission. Echo shows EF of 40-45%. There was poor visualization of the endocardial borders. He had grade 1 diastolic dysfunction. Lexiscan stress test today was normal. Appreciate cardiology input. Continue Plavix and Imdur. He is allergic to aspirin. (3) Chronic respiratory failure with hypoxia: Code(s): J96.11 - Chronic respiratory failure with hypoxia Status: Acute Assessment and Plan: Patient with chronic respiratory failure wearing 1-2 L chronically. Chest x-ray noted. He is at baseline. Continue to monitor. (4) COPD (chronic obstructive pulmonary disease): Code(s): J44.9 - Chronic obstructive pulmonary disease, unspecified Status: Acute Assessment and Plan: No wheezing. Not on inhalers at the facility. Continue to follow. (5) Coronary artery disease: Code(s): I25.10 - Atherosclerotic heart disease of [place] coronary artery without angina pectoris Status: Acute Assessment and Plan: Patient has a history of coronary disease with stent placement x3. Patient has multiple risk factors for coronary disease as well with hypertension, hyperlipidemia and diabetes. As above. (6) CVA (cerebral vascular accident): Code(s): I63.9 - Cerebral infarction, unspecified Status: Acute Assessment and Plan: Patient has a history of CVA. [facility]. Continue atorvastatin and Plavix. (7) Dementia: Code(s): F03.90 - Unspecified dementia, unspecified severity, without behavioral disturbance, psychotic disturbance, mood disturbance, and anxiety Status: Acute Assessment and Plan: Patient's history is unreliable given his known dementia. We have continued his Namenda and Aricept. (8) DM2 (diabetes mellitus, type 2): Code(s): E11.9 - Type 2 diabetes mellitus without complications Status: Acute Assessment and Plan: A1c 7.3. The patient's blood glucose was reviewed on 08/24 Glucose remains well controlled. Continue AccuCheks covering with sliding scale. Hypoglycemia protocol available as needed. Continue current medications. (9) HTN (hypertension): Code(s): I10 - Essential (primary) hypertension Status: Acute Assessment and Plan: Patient's blood pressure was reviewed on 08/24 Blood pressure remains well controlled. Will continue current medications. Subjective Date/time seen: 08/24/22 16:50 Interval history: 67yo male with DM, HTN, COPD and chronic respiratory failure here for chest pain. Patient slept well. He is alert but confused
[2022-08-24] MEDS: DONEPEZIL HCL 10 MG TABLET PO (21:05)
[2022-08-24] MEDS: CITALOPRAM HYDROBROMIDE 20 MG TABLET PO (21:06)
[2022-08-24] MEDS: TAMSULOSIN HCL 0.4 MG CAPSULE PO (21:06)
[2022-08-24] MEDS: traZODone HCL 50 MG TABLET PO (21:06)
[2022-08-24] MEDS: INSULIN GLARGINE (*BKC) 100 UNITS/ML 28 UNITS SUB-Q (21:07)
--- NOTE | 2022-08-24 22:07 | EST_ITS ---
Patient Info Name: Gt Dubon Age: 67 years : 1955 Gender: Male Ht: 72 in Wt: 300 lbs BSA: 2.69 m2 HR: 68 bpm BP: 122 / 65 mmHg Heart Rhythm: Sinus Rhythm Exam Date: 08/24/2022 10:44 AM Exam Location: [facility] Stress Patient Status: Inpatient Admit Date: 08/21/2022 Staff Ordering Physician: Dania Cooley NP Attending Provider: Denny Erwin MD Exercise Technologist: Veronica Summers CT Exercise Physician: Kaye Campbell MD Exam Type: CA stress ciara w NM Study Info Indications R07.9 - Chest pain, unspecified A regadenoson stress test was performed. Summary 1. Please correlate with nuclear medicine images, reported separately. 2. No abnormal ST-T wave changes with lexiscan. Protocol: Lexiscan Stress ECG Details Stage: REST Duration (min): 3 min : 59 sec HR (bpm): 70 SBP (mmHg): 122 DBP (mmHg): 65 Stage: REST Duration (min): 11 min : 57 sec HR (bpm): 67 SBP (mmHg): 122 DBP (mmHg): 65 Stage: STAGE 1 Duration (min): 1 min : 0 sec HR (bpm): 78 SBP (mmHg): 119 DBP (mmHg): 68 Stage: RECOVERY Duration (min): 1 min : 0 sec HR (bpm): 93 SBP (mmHg): 119 DBP (mmHg): 68 Stage: RECOVERY Duration (min): 2 min : 0 sec HR (bpm): 90 SBP (mmHg): 119 DBP (mmHg): 68 Stage: RECOVERY Duration (min): 3 min : 0 sec HR (bpm): 83 SBP (mmHg): 111 DBP (mmHg): 63 Stage: RECOVERY Duration (min): 3 min : 15 sec HR (bpm): 82 SBP (mmHg): 111 DBP (mmHg): 63 Rest HR: 67 bpm Peak HR: 95 bpm Rest Sys BP: 122 mmHg Peak Sys BP: 119 mmHg Max Pred HR: 153 bpm % Max Pred HR: 62 % Target HR: 130 bpm Max RPP: 11,305 bpm*mmHg Total Time: 1 min : 0 sec Rest Freeman BP: 65 mmHg Peak Freeman BP: 68 mmHg Total Dose: 0.4 mg Resting ECG Sinus rhythm. Intraventricular conduction delay. Baseline / motion artifact present. Stress ECG Sinus rhythm. No ST-T wave abnormalities suggestive of ischemia. Report Signatures
[2022-08-24 22:21] LABS: Glucose Point of Care 150 mg/dl (65-105)
--- NOTE | 2022-08-25 01:32 | PC.NURSE ---
Pt is resting in room. Pt able to ambulate with SBA and gait belt. Pt typically uses a walker at home, but no walker is available. Pt states that he is normally on 3 liters O2 at home. Pt is on 3 liters O2 here. Pt participated and contributed in plan of care for the shift. Pt has no complaints or needs at this time. Will continue to monitor pt.
[2022-08-25 05:40] VITALS: BP 152/70; PULSE 81; RESP 20; TEMP 36.7; O2SAT 92
[2022-08-25 06:11] LABS: Basophils Percent Auto 0.3 % (0.2-1.2); Eosinophils Absolute Auto 0.9 K/mm3 (0-0.3); Eosinophils Percent Auto 13.5 % (0-4.4); Hematocrit 42.2 % (42.0-52.0); Hemoglobin 12.6 g/dL (14.0-18.0); Immature Granulocyte Absolute 0.01 K/mm3 (0.00-0.031); Immature Granulocyte Percent A 0.1 % (0-0.5); Lymphocytes Absolute Auto 0.96 K/mm3 (0.9-3.2); Lymphocytes Percent Auto 14.1 % (18.3-44.2); Mean Corpuscular HGB Conc 29.9 g/dl (32-36); Mean Corpuscular Hemoglobin 27.9 pg (26-34); Mean Corpuscular Volume 93.4 fl (80-100); Mean Platelet Volume 10.8 fl (7.4-10.4); Monocytes Absolute Auto 0.6 K/mm3 (0.1-0.6); Monocytes Percent Auto 8.7 % (2.6-8.5); Neutrophils Absolute Auto 4.3 K/mm3 (1.3-6.7); Neutrophils Percent Auto 63.3 % (45.5-73.1); Platelet Count Result 173 k/mm3 (150-375); Red Blood Count 4.52 M/mm3 (4.6-6.20); Red Cell Distribution Width 15.5 % (11.5-14.5); White Blood Count 6.8 K/mm3 (4.5-10.0)
[2022-08-25 06:30] LABS: Anion Gap 11 mmol/L (8-16); Blood Urea Nitrogen 15 mg/dL (9-20); CRP 0.5 mg/dL (<1.0); Carbon Dioxide 32 mmol/L (22-30); Chloride 99 mmol/L (98-107); Estimated CRCL calculation 108 ml/min; Estimated Glomerular Filt Rate > 60; Glucose 140 mg/dL (65-110); Potassium 3.9 mmol/L (3.4-5.0); Sodium 142 mmol/L (137-145)
[2022-08-25 07:15] LABS: Vancomycin Trough 30.1 ug/mL (10.0-20.0)
[2022-08-25 08:00] VITALS: O2SAT 92
[2022-08-25 09:04] LABS: Glucose Point of Care 93 mg/dl (65-105)
[2022-08-25] MEDS: calcium polycarbophiL 625 MG TABLET 1250 MG PO ×2 (09:05→17:13)
[2022-08-25] MEDS: ATORVASTATIN 40 MG TABLET 80 MG PO (09:05)
[2022-08-25] MEDS: DIVALPROEX SODIUM ER 500 MG TAB.24H PO (09:06)
[2022-08-25] MEDS: CLOPIDOGREL BISULFATE 75 MG TABLET PO (09:06)
[2022-08-25] MEDS: ISOSORBIDE MONONITRATE 30 MG TAB.ER.24H PO (09:06)
[2022-08-25] MEDS: RANOLAZINE 500 MG TAB.ER.12H PO ×2 (09:06→17:13)
[2022-08-25] MEDS: PENTOXIFYLLINE 400 MG TABCR PO ×2 (09:06→17:13)
[2022-08-25] MEDS: APIXABAN 5 MG TABLET PO ×2 (09:06→17:13)
[2022-08-25] MEDS: LIPASE/AMYLASE/PROTEASE 12,000 UNITS CAP 1 CAP PO ×2 (09:06→17:13)
[2022-08-25] MEDS: CHOLECALCIFEROL 1,000 UNITS TABLET 2000 UNITS PO (09:06)
[2022-08-25] MEDS: oxyCODONE HCL (*CRX) 5 MG TAB IR PO ×3 (09:06→21:33)
[2022-08-25] MEDS: PANTOPRAZOLE 40 MG TABLET PO (09:06)
[2022-08-25] MEDS: MEMANTINE 10 MG TABLET PO ×2 (09:06→17:13)
[2022-08-25] MEDS: FOLIC ACID 1 MG TABLET PO (09:06)
--- NOTE | 2022-08-25 09:39 | PM.PNCARD ---
Progress Note: A&P Assessment and Plan (1) Chest pain: Code(s): R07.9 - Chest pain, unspecified Status: Acute Plan 67-year-old man with reported history of coronary disease with previous PCI. Had an episode of chest pain prior to admission. No chest pain episodes while here. Lexiscan done yesterday which was negative for ischemia / infarction. LVEF is normal at 52%. No further inpatient cardiac evaluation or workup. Patient can follow-up with us as an outpatient. Cardiology will sign off. Time Spent With Patient Time with patient: 15 - 25 minutes Subjective Date/time seen: 08/25/22 09:39 Interval history: Reason for visit: Chest pain. No acute events overnight. Patient without cardiac symptoms this AM. Patient does complain of back pain and a headache. Review of Systems Review of Systems: 8-point ROS obtained. Negative, unless stated in HPI. Exam Const: General: comfortable and no acute distress HENMT: Mouth: Yes moist mucous membranes Eyes: General: appearance normal, both eyes and all related structures Neck: Neck: supple and no JVD Resp: Effort & Inspection: normal respiratory effort Auscultation: diminished lung sounds Other: On O2 via [place] Cardio: Rate: regular rate Rhythm: regular rhythm Heart sounds: no murmurs GI: GI Palp: Yes Soft to palpation and No Tenderness to palpation present (GI) Skin: General skin exam: normal color Neuro: Speech: normal speech Extrem: General: no edema Psych: Mental Status: mental status grossly normal Objective Data Vital Signs Vital Signs: Vital Signs - 24 hr 08/24/22 10:00 08/24/22 12:00 08/24/22 12:00 Temperature Pulse Rate 78 72 Respiratory Rate Blood Pressure Pulse Oximetry 93 Oxygen Delivery Nasal Cannula Oxygen Flow Rate 2 08/24/22 12:00 08/24/22 14:00 08/24/22 16:00 Temperature 36.0 C L Pulse Rate 72 66 Respiratory Rate 20 Blood Pressure 132/67 Pulse Oximetry 95 93 Oxygen Delivery Nasal Cannula Oxygen Flow Rate 2 08/24/22 16:00 08/24/22 16:00 08/24/22 20:45 Temperature 36.1 C L Pulse Rate 61 81 Respiratory Rate 18 Blood Pressure 127/67 Pulse Oximetry 96 94 Oxygen Delivery Nasal Cannula Oxygen Flow Rate 2 08/24/22 22:00 08/24/22 21:05 08/25/22 05:40 Temperature 36.4 C L 36.7 C Pulse Rate 63 81 Respiratory Rate 20 20 Blood Pressure 133/71 152/70 H Pulse Oximetry 94 94 92 Oxygen Delivery Nasal Cannula Oxygen Flow Rate 3 Intake/Output Intake/Output: Intake & Output 08/22/22 08/23/22 08/24/22 08/25/22 23:59 23:59 23:59 23:59 Intake Total 1940 2220 2160 100 Output Total 302 1051 850 100 Balance 1638 1169 1310 0 Meds/Results Medications: Active Medications Generic Name Dose Route Start Last Admin Trade Name Freq PRN Reason Stop Dose Admin Acetaminophen 650 mg 08/21/22 18:01 08/21/22 22:06 Acetaminophen 325 Mg Tablet PO 650 mg Q4H PRN Administration Mild Pain (1-3) or Fever Albuterol 2 puff 08/21/22 22:23 Albuterol Sulfate (*Sp) Aerosol 1 Puff INHALATION Q6HRT PRN Shortness Of Breath Lipase/Protease/Amylase 1 cap 08/22/22 08:00 08/25/22 09:06 Lipase/Amylase/Protease 12,000 Units Cap PO 1 cap TIDWM KASHMIR Administration Apixaban 5 mg 08/21/22 22:25 08/25/22 09:06 Apixaban 5 Mg Tablet PO 5 mg BID KASHMIR Administration Atorvastatin Calcium 80 mg 08/22/22 09:00 08/25/22 09:05 Atorvastatin 40 Mg Tablet PO 80 mg DAILY KASHMIR Administration Calcium Polycarbophil 1,250 mg 08/22/22 09:00 08/25/22 09:05 Calcium Polycarbophil 625 Mg Tablet PO 1,250 mg BID KASHMIR Administration Citalopram Hydrobromide 20 mg 08/21/22 22:25 08/24/22 21:06 Citalopram Hydrobromide 20 Mg Tablet PO 20 mg HS KASHMIR Administration Clopidogrel Bisulfate 75 mg 08/22/22 09:00 08/25/22 09:06 Clopidogrel Bisulfate 75 Mg Tablet PO 75 mg DAILY KASHMIR Administration Dextrose 12.5 gm 10
[2022-08-25 11:54] LABS: Glucose Point of Care 124 mg/dl (65-105)
--- NOTE | 2022-08-25 11:55 | PM.IMPN ---
Progress Note: A&P Assessment and Plan (1) Bacteremia: Code(s): R78.81 - Bacteremia Status: Acute Assessment and Plan: Patient is brought in from the retirement with complaints of chest pain, shortness of breath, cough and nasal congestion. No fevers. White count was normal. Blood cultures were collected. Chest x-ray shows mild atelectasis in right lower lung zones. Blood cultures (2of2) have returned positive for Gram-positive cocci in clusters; Vancomycin started. ID showing Staph Epi. Repeat blood cultures (1of2) positive for Staph Epi, sensitivities pending. Echo showing no obvious vegetations. CRP normal. Normally contaminant but concerning with multiple positive BCx specimens. Continue IV abx. Repeat BCx NGTD. If unable to obtain negative cultures, consider EDOUARD. (2) Chest pain: Code(s): R07.9 - Chest pain, unspecified Status: Acute Assessment and Plan: Patient having atypical chest pain occurring at rest. Patient was here on 08/15/2022 for atypical chest pain and had a positive D-dimer; CTA of the chest was negative for PE. EKG here shows normal sinus rhythm with incomplete right bundle branch block, left anterior fascicular block and possible old inferior [place]. These findings actually are new when compared to EKG few days ago. D-dimer was repeated and is positive again. Patient was on Eliquis on admission. Echo shows EF of 40-45%. There was poor visualization of the endocardial borders. He had grade 1 diastolic dysfunction. Lexiscan stress test today was normal. Appreciate cardiology input. Continue Plavix and Imdur. He is allergic to aspirin. (3) Chronic respiratory failure with hypoxia: Code(s): J96.11 - Chronic respiratory failure with hypoxia Status: Acute Assessment and Plan: Patient with chronic respiratory failure wearing 1-2 L chronically. Chest x-ray noted. O2 requirement up to 3L. Continue to monitor. (4) COPD (chronic obstructive pulmonary disease): Code(s): J44.9 - Chronic obstructive pulmonary disease, unspecified Status: Acute Assessment and Plan: No wheezing. Not on inhalers at the facility. Continue to follow. (5) Coronary artery disease: Code(s): I25.10 - Atherosclerotic heart disease of [place] coronary artery without angina pectoris Status: Acute Assessment and Plan: Patient has a history of coronary disease with stent placement x3. Patient has multiple risk factors for coronary disease as well with hypertension, hyperlipidemia and diabetes. As above. (6) CVA (cerebral vascular accident): Code(s): I63.9 - Cerebral infarction, unspecified Status: Acute Assessment and Plan: Patient has a history of CVA. He is currently at a retirement in detention care. Continue atorvastatin and Plavix. (7) Dementia: Code(s): F03.90 - Unspecified dementia, unspecified severity, without behavioral disturbance, psychotic disturbance, mood disturbance, and anxiety Status: Acute Assessment and Plan: Patient's history is unreliable given his known dementia. We have continued his Namenda and Aricept. (8) DM2 (diabetes mellitus, type 2): Code(s): E11.9 - Type 2 diabetes mellitus without complications Status: Acute Assessment and Plan: A1c 7.3. The patient's blood glucose was reviewed on 08/25 Glucose remains well controlled. Continue AccuCheks covering with sliding scale. Hypoglycemia protocol available as needed. Continue current medications. (9) HTN (hypertension): Code(s): I10 - Essential (primary) hypertension Status: Acute Assessment and Plan: Patient's blood pressure was reviewed on 08/25 Blood pressure remains well controlled. Will continue current medications. Subjective Date/time seen: 08/25/22 11:55 Interval history: 67yo male with DM, HTN, COPD and chronic respiratory failure here for chest gabby
[2022-08-25 14:00] VITALS: BP 115/72; PULSE 77; RESP 16; TEMP 36.5; O2SAT 95
[2022-08-25 16:41] LABS: Glucose Point of Care 80 mg/dl (65-105)
[2022-08-25 21:34] VITALS: O2SAT 96
[2022-08-25] MEDS: CITALOPRAM HYDROBROMIDE 20 MG TABLET PO (21:34)
[2022-08-25] MEDS: TAMSULOSIN HCL 0.4 MG CAPSULE PO (21:34)
[2022-08-25] MEDS: traZODone HCL 50 MG TABLET PO (21:34)
[2022-08-25] MEDS: INSULIN GLARGINE (*BKC) 100 UNITS/ML 28 UNITS SUB-Q (21:35)
[2022-08-25] MEDS: DONEPEZIL HCL 10 MG TABLET PO (21:35)
[2022-08-25 22:00] VITALS: BP 134/74; PULSE 61; RESP 20; TEMP 37; O2SAT 96
[2022-08-25 22:33] LABS: Glucose Point of Care 115 mg/dl (65-105)
--- NOTE | 2022-08-26 00:24 | PC.NURSE ---
Pt refuses to have bed alarm on. Pt has been educated on the safety aspect of having the bed alarm and pt continues to refuse. Pt has been compliant with using the call light so far this shift. Pt reports chronic back pain 10+. Pt given pain medication to treat. Pt participated and contributed in plan of care. Pt verbalizes no other needs at this time. Will continue to monitor pt.
[2022-08-26 05:47] VITALS: BP 133/58; PULSE 71; RESP 20; TEMP 36.5; O2SAT 95
[2022-08-26 06:49] LABS: Estimated CRCL calculation 96 ml/min; Estimated Glomerular Filt Rate > 60
[2022-08-26 08:27] LABS: Glucose Point of Care 73 mg/dl (65-105)
[2022-08-26] MEDS: ATORVASTATIN 40 MG TABLET 80 MG PO (09:00)
[2022-08-26] MEDS: oxyCODONE HCL (*CRX) 5 MG TAB IR PO ×3 (09:13→23:09)
[2022-08-26] MEDS: CHOLECALCIFEROL 1,000 UNITS TABLET 2000 UNITS PO (09:14)
[2022-08-26] MEDS: RANOLAZINE 500 MG TAB.ER.12H PO ×2 (09:14→17:07)
[2022-08-26] MEDS: DIVALPROEX SODIUM ER 500 MG TAB.24H PO (09:14)
[2022-08-26] MEDS: PENTOXIFYLLINE 400 MG TABCR PO ×2 (09:14→17:07)
[2022-08-26] MEDS: LIPASE/AMYLASE/PROTEASE 12,000 UNITS CAP 1 CAP PO ×3 (09:14→17:07)
[2022-08-26] MEDS: calcium polycarbophiL 625 MG TABLET 1250 MG PO ×2 (09:14→17:07)
[2022-08-26] MEDS: FOLIC ACID 1 MG TABLET PO (09:14)
[2022-08-26] MEDS: PANTOPRAZOLE 40 MG TABLET PO (09:14)
[2022-08-26] MEDS: CLOPIDOGREL BISULFATE 75 MG TABLET PO (09:14)
[2022-08-26] MEDS: APIXABAN 5 MG TABLET PO ×2 (09:15→17:07)
[2022-08-26] MEDS: ISOSORBIDE MONONITRATE 30 MG TAB.ER.24H PO (09:15)
[2022-08-26] MEDS: MEMANTINE 10 MG TABLET PO ×2 (09:15→17:07)
--- NOTE | 2022-08-26 11:08 | PM.IMPN ---
Progress Note: A&P Assessment and Plan (1) Bacteremia: Code(s): R78.81 - Bacteremia Status: Acute (2) Chest pain: Code(s): R07.9 - Chest pain, unspecified Status: Acute (3) Chronic respiratory failure with hypoxia: Code(s): J96.11 - Chronic respiratory failure with hypoxia Status: Acute (4) COPD (chronic obstructive pulmonary disease): Code(s): J44.9 - Chronic obstructive pulmonary disease, unspecified Status: Acute (5) Coronary artery disease: Code(s): I25.10 - Atherosclerotic heart disease of [place] coronary artery without angina pectoris Status: Acute (6) CVA (cerebral vascular accident): Code(s): I63.9 - Cerebral infarction, unspecified Status: Acute (7) Dementia: Code(s): F03.90 - Unspecified dementia, unspecified severity, without behavioral disturbance, psychotic disturbance, mood disturbance, and anxiety Status: Acute (8) DM2 (diabetes mellitus, type 2): Code(s): E11.9 - Type 2 diabetes mellitus without complications Status: Acute (9) HTN (hypertension): Code(s): I10 - Essential (primary) hypertension Status: Acute Plan 08/25/22 Patient is brought in from the skilled nursing with complaints of chest pain, shortness of breath, cough and nasal congestion.? No fevers.? White count was normal.? Blood cultures were collected.? Chest x-ray shows mild atelectasis in right lower lung zones.? Blood cultures (2of2) have returned positive for Gram-positive cocci in clusters; Vancomycin started. ID showing Staph Epi. Repeat blood cultures (1of2) positive for Staph Epi, sensitivities pending. Echo showing no obvious vegetations. CRP normal. Normally contaminant but concerning with multiple positive BCx specimens. Continue IV abx. Repeat BCx NGTD. If unable to obtain negative cultures, consider EDOUARD. Patient having atypical chest pain occurring at rest.? Patient was here on 08/15/2022 for atypical chest pain and had a positive D-dimer; CTA of the chest was negative for PE. EKG here shows normal sinus rhythm with incomplete right bundle branch block, left anterior fascicular block and possible old inferior [place]. These findings actually are new when compared to EKG few days ago. D-dimer was repeated and is positive again. Patient was on Eliquis on admission. Echo shows EF of 40-45%.? There was poor visualization of the endocardial borders.? He had grade 1 diastolic dysfunction. Lexiscan stress test today was normal. Appreciate cardiology input.? Continue Plavix and Imdur.? He is allergic to aspirin. Patient with chronic respiratory failure wearing 1-2 L chronically.? Chest x-ray noted.? O2 requirement up to 3L.? Continue to monitor. No wheezing.? Not on inhalers at the facility.? Continue to follow. Patient has a history of coronary disease with stent placement x3.? Patient has multiple risk factors for coronary disease as well with hypertension, hyperlipidemia and diabetes.? As above. Patient has a history of CVA.? He is currently at a skilled nursing in [facility] care.? Continue atorvastatin and Plavix. Patient's history is unreliable given his known dementia.? We have continued his Namenda and Aricept. A1c 7.3.? The patient's blood glucose was reviewed on 08/25 Glucose remains well controlled.? Continue AccuCheks covering with sliding scale.? Hypoglycemia protocol available as needed.? Continue current medications. Patient's blood pressure was reviewed on 08/25 Blood pressure remains well controlled.? Will continue current medications.? 08/26/22 pending repeat blood cx to result cont current care for now if positive will need EDOUARD cont on Vancomycin cont current meds monitor renal fx am labs ordered Subjective Date/time seen: 08/26/22 11:08 pt ok denies any complaints wants to go home Review of Systems Review of Systems: All systems reviewed & are unremarkable except as noted in HPI and below Exam Narrative: Gen - NAD alert coope
[2022-08-26 11:19] VITALS: O2SAT 93
[2022-08-26 11:55] LABS: Glucose Point of Care 117 mg/dl (65-105)
[2022-08-26] MEDS: HALOPERIDOL LACTATE 5 MG/ML VIAL 2 MG IV PUSH (12:37)
[2022-08-26] MEDS: ACETAMINOPHEN 325 MG TABLET 650 MG PO (13:04)
[2022-08-26 14:00] VITALS: BP 116/61; PULSE 70; RESP 16; TEMP 36.7; O2SAT 93
[2022-08-26] MEDS: ALBUTEROL SULFATE (*SP) AEROSOL 1 PUFF 2 PUFF INHALATION (14:20)
[2022-08-26 14:22] VITALS: O2SAT 93
[2022-08-26 16:56] LABS: Glucose Point of Care 136 mg/dl (65-105)
[2022-08-26 20:00] VITALS: O2SAT 95
[2022-08-26 20:53] LABS: Glucose Point of Care 119 mg/dl (65-105)
[2022-08-26] MEDS: INSULIN GLARGINE (*BKC) 100 UNITS/ML 28 UNITS SUB-Q (20:55)
[2022-08-26] MEDS: TAMSULOSIN HCL 0.4 MG CAPSULE PO (20:55)
[2022-08-26] MEDS: DONEPEZIL HCL 10 MG TABLET PO (20:55)
[2022-08-26] MEDS: CITALOPRAM HYDROBROMIDE 20 MG TABLET PO (20:55)
[2022-08-26] MEDS: traZODone HCL 50 MG TABLET PO (20:56)
[2022-08-26 21:20] VITALS: BP 136/72; PULSE 58; RESP 20; TEMP 36.7; O2SAT 95
[2022-08-27 05:29] VITALS: BP 124/68; PULSE 74; RESP 20; TEMP 36.4; O2SAT 96
[2022-08-27 07:47] LABS: Glucose Point of Care 94 mg/dl (65-105)
[2022-08-27 08:00] VITALS: O2SAT 96
[2022-08-27] MEDS: CLOPIDOGREL BISULFATE 75 MG TABLET PO (08:29)
[2022-08-27] MEDS: RANOLAZINE 500 MG TAB.ER.12H PO ×2 (08:29→17:22)
[2022-08-27] MEDS: ATORVASTATIN 40 MG TABLET 80 MG PO (08:29)
[2022-08-27] MEDS: PENTOXIFYLLINE 400 MG TABCR PO ×2 (08:29→17:23)
[2022-08-27] MEDS: ISOSORBIDE MONONITRATE 30 MG TAB.ER.24H PO (08:29)
[2022-08-27] MEDS: calcium polycarbophiL 625 MG TABLET 1250 MG PO ×2 (08:29→17:21)
[2022-08-27] MEDS: FOLIC ACID 1 MG TABLET PO (08:29)
[2022-08-27] MEDS: CHOLECALCIFEROL 1,000 UNITS TABLET 2000 UNITS PO (08:29)
[2022-08-27] MEDS: DIVALPROEX SODIUM ER 500 MG TAB.24H PO (08:29)
[2022-08-27] MEDS: APIXABAN 5 MG TABLET PO ×2 (08:29→17:21)
[2022-08-27] MEDS: PANTOPRAZOLE 40 MG TABLET PO (08:29)
[2022-08-27] MEDS: MEMANTINE 10 MG TABLET PO ×2 (08:29→17:21)
[2022-08-27] MEDS: LIPASE/AMYLASE/PROTEASE 12,000 UNITS CAP 1 CAP PO ×2 (08:30→17:21)
[2022-08-27] MEDS: oxyCODONE HCL (*CRX) 5 MG TAB IR PO ×3 (08:30→23:46)
[2022-08-27 11:37] LABS: Glucose Point of Care 135 mg/dl (65-105)
--- NOTE | 2022-08-27 13:56 | PM.IMPN ---
Progress Note: A&P Assessment and Plan (1) Bacteremia: Code(s): R78.81 - Bacteremia Status: Acute (2) Chest pain: Code(s): R07.9 - Chest pain, unspecified Status: Acute (3) Chronic respiratory failure with hypoxia: Code(s): J96.11 - Chronic respiratory failure with hypoxia Status: Acute (4) COPD (chronic obstructive pulmonary disease): Code(s): J44.9 - Chronic obstructive pulmonary disease, unspecified Status: Acute (5) Coronary artery disease: Code(s): I25.10 - Atherosclerotic heart disease of [place] coronary artery without angina pectoris Status: Acute (6) CVA (cerebral vascular accident): Code(s): I63.9 - Cerebral infarction, unspecified Status: Acute (7) Dementia: Code(s): F03.90 - Unspecified dementia, unspecified severity, without behavioral disturbance, psychotic disturbance, mood disturbance, and anxiety Status: Acute (8) DM2 (diabetes mellitus, type 2): Code(s): E11.9 - Type 2 diabetes mellitus without complications Status: Acute (9) HTN (hypertension): Code(s): I10 - Essential (primary) hypertension Status: Acute Plan 08/25/22 Patient is brought in from the long term with complaints of chest pain, shortness of breath, cough and nasal congestion.? No fevers.? White count was normal.? Blood cultures were collected.? Chest x-ray shows mild atelectasis in right lower lung zones.? Blood cultures (2of2) have returned positive for Gram-positive cocci in clusters; Vancomycin started. ID showing Staph Epi. Repeat blood cultures (1of2) positive for Staph Epi, sensitivities pending. Echo showing no obvious vegetations. CRP normal. Normally contaminant but concerning with multiple positive BCx specimens. Continue IV abx. Repeat BCx NGTD. If unable to obtain negative cultures, consider EDOUARD. Patient having atypical chest pain occurring at rest.? Patient was here on 08/15/2022 for atypical chest pain and had a positive D-dimer; CTA of the chest was negative for PE. EKG here shows normal sinus rhythm with incomplete right bundle branch block, left anterior fascicular block and possible old inferior [place]. These findings actually are new when compared to EKG few days ago. D-dimer was repeated and is positive again. Patient was on Eliquis on admission. Echo shows EF of 40-45%.? There was poor visualization of the endocardial borders.? He had grade 1 diastolic dysfunction. Lexiscan stress test today was normal. Appreciate cardiology input.? Continue Plavix and Imdur.? He is allergic to aspirin. Patient with chronic respiratory failure wearing 1-2 L chronically.? Chest x-ray noted.? O2 requirement up to 3L.? Continue to monitor. No wheezing.? Not on inhalers at the facility.? Continue to follow. Patient has a history of coronary disease with stent placement x3.? Patient has multiple risk factors for coronary disease as well with hypertension, hyperlipidemia and diabetes.? As above. Patient has a history of CVA.? He is currently at a long term in nursing home care.? Continue atorvastatin and Plavix. Patient's history is unreliable given his known dementia.? We have continued his Namenda and Aricept. A1c 7.3.? The patient's blood glucose was reviewed on 08/25 Glucose remains well controlled.? Continue AccuCheks covering with sliding scale.? Hypoglycemia protocol available as needed.? Continue current medications. Patient's blood pressure was reviewed on 08/25 Blood pressure remains well controlled.? Will continue current medications.? 08/26/22 pending repeat blood cx to result cont current care for now if positive will need EDOUARD cont on Vancomycin cont current meds monitor renal fx am labs ordered 08/27/22 repeat blood cultures remain NGTD PICC ordered for vanco 08/26/22-09/09/22 PCP to follow BMPs ? consult billing coordinator for dc planning dispo: return to [place] tomorrow w abx for 11 more days Subjective Date/time seen: 08/27/22 13:56
[2022-08-27 14:00] VITALS: BP 116/65; PULSE 78; RESP 18; TEMP 36.2; O2SAT 95
[2022-08-27] MEDS: LIDOCAINE HCL 1% PF INJ 5 ML VIAL INFILTRATE (14:35)
[2022-08-27 16:39] LABS: Glucose Point of Care 97 mg/dl (65-105)
[2022-08-27] MEDS: HYDROmorphone HCL INJ (*CRX) 1 MG/ML SYR 0.5 MG IV PUSH (20:32)
[2022-08-27 20:36] LABS: Vancomycin Trough 11.6 ug/mL (10.0-20.0)
[2022-08-27] MEDS: INSULIN GLARGINE (*BKC) 100 UNITS/ML 28 UNITS SUB-Q (21:36)
[2022-08-27] MEDS: DONEPEZIL HCL 10 MG TABLET PO (21:36)
[2022-08-27] MEDS: CITALOPRAM HYDROBROMIDE 20 MG TABLET PO (21:36)
[2022-08-27] MEDS: TAMSULOSIN HCL 0.4 MG CAPSULE PO (21:37)
[2022-08-27] MEDS: traZODone HCL 50 MG TABLET PO (21:37)
[2022-08-27 22:00] VITALS: BP 151/69; PULSE 63; RESP 19; TEMP 36.4; O2SAT 95
[2022-08-27] MEDS: CENTRAL LINE FLUSH 10 ML IV PUSH (22:16)
[2022-08-27 22:24] VITALS: O2SAT 96
[2022-08-27 23:49] LABS: Glucose Point of Care 143 mg/dl (65-105)
[2022-08-28 06:00] VITALS: BP 112/71; PULSE 76; RESP 19; TEMP 36.2; O2SAT 97
[2022-08-28] MEDS: CENTRAL LINE FLUSH 10 ML IV PUSH ×2 (06:06→13:05)
[2022-08-28 06:30] LABS: Estimated CRCL calculation 108 ml/min; Estimated Glomerular Filt Rate > 60
[2022-08-28 08:16] LABS: Glucose Point of Care 95 mg/dl (65-105)
[2022-08-28] MEDS: CLOPIDOGREL BISULFATE 75 MG TABLET PO (08:52)
[2022-08-28] MEDS: MEMANTINE 10 MG TABLET PO (08:52)
[2022-08-28] MEDS: CHOLECALCIFEROL 1,000 UNITS TABLET 2000 UNITS PO (08:52)
[2022-08-28] MEDS: ISOSORBIDE MONONITRATE 30 MG TAB.ER.24H PO (08:52)
[2022-08-28] MEDS: calcium polycarbophiL 625 MG TABLET 1250 MG PO (08:53)
[2022-08-28] MEDS: LIPASE/AMYLASE/PROTEASE 12,000 UNITS CAP 1 CAP PO ×2 (08:53→13:23)
[2022-08-28] MEDS: ATORVASTATIN 40 MG TABLET 80 MG PO (08:53)
[2022-08-28] MEDS: APIXABAN 5 MG TABLET PO (08:53)
[2022-08-28] MEDS: PANTOPRAZOLE 40 MG TABLET PO (08:53)
[2022-08-28] MEDS: FOLIC ACID 1 MG TABLET PO (08:53)
[2022-08-28] MEDS: RANOLAZINE 500 MG TAB.ER.12H PO (08:53)
[2022-08-28] MEDS: DIVALPROEX SODIUM ER 500 MG TAB.24H PO (08:53)
[2022-08-28] MEDS: PENTOXIFYLLINE 400 MG TABCR PO (08:53)
--- NOTE | 2022-08-28 10:42 | PM.DS ---
DS: Admitting Diagnosis Discharge Date 08/28/22 Admitting Diagnosis (1) Chest pain: ?Code(s): R07.9 - Chest pain, unspecified ?Status:?Acute ?Assessment and Plan: (2) Chronic respiratory failure with hypoxia: ?Code(s): J96.11 - Chronic respiratory failure with hypoxia ?Status:?Acute ?Assessment and Plan: (3) COPD (chronic obstructive pulmonary disease): ?Code(s): J44.9 - Chronic obstructive pulmonary disease, unspecified ?Status:?Acute ?Assessment and Plan: (4) Coronary artery disease: ?Code(s): I25.10 - Atherosclerotic heart disease of [place] coronary artery without angina pectoris ?Status:?Acute ?Assessment and Plan: (5) CVA (cerebral vascular accident): ?Code(s): I63.9 - Cerebral infarction, unspecified ?Status:?Acute ?Assessment and Plan: (6) Dementia: ?Code(s): F03.90 - Unspecified dementia, unspecified severity, without behavioral disturbance, psychotic disturbance, mood disturbance, and anxiety ?Status:?Acute ?Assessment and Plan: (7) HLD (hyperlipidemia): ?Code(s): E78.5 - Hyperlipidemia, unspecified ?Status:?Acute ?Assessment and Plan: (8) Depression: ?Code(s): F32.A - Depression, unspecified ?Status:?Acute ?Assessment and Plan: (9) BPH (benign prostatic hyperplasia): ?Code(s): N40.0 - Benign prostatic hyperplasia without lower urinary tract symptoms ?Status:?Acute ? (10) DM2 (diabetes mellitus, type 2): ?Code(s): E11.9 - Type 2 diabetes mellitus without complications ?Status:?Acute ? ? ? DS: Discharge Diagnosis Discharge Diagnosis (1) Bacteremia: Code(s): R78.81 - Bacteremia Status: Acute (2) Chest pain: Code(s): R07.9 - Chest pain, unspecified Status: Acute (3) Chronic respiratory failure with hypoxia: Code(s): J96.11 - Chronic respiratory failure with hypoxia Status: Acute (4) COPD (chronic obstructive pulmonary disease): Code(s): J44.9 - Chronic obstructive pulmonary disease, unspecified Status: Acute (5) Coronary artery disease: Code(s): I25.10 - Atherosclerotic heart disease of [place] coronary artery without angina pectoris Status: Acute (6) CVA (cerebral vascular accident): Code(s): I63.9 - Cerebral infarction, unspecified Status: Acute (7) Dementia: Code(s): F03.90 - Unspecified dementia, unspecified severity, without behavioral disturbance, psychotic disturbance, mood disturbance, and anxiety Status: Acute (8) DM2 (diabetes mellitus, type 2): Code(s): E11.9 - Type 2 diabetes mellitus without complications Status: Acute (9) HTN (hypertension): Code(s): I10 - Essential (primary) hypertension Status: Acute (10) Fungemia: Code(s): B49 - Unspecified mycosis Status: Acute (11) BPH (benign prostatic hyperplasia): Code(s): N40.0 - Benign prostatic hyperplasia without lower urinary tract symptoms Status: Acute (12) Depression: Code(s): F32.A - Depression, unspecified Status: Acute (13) HLD (hyperlipidemia): Code(s): E78.5 - Hyperlipidemia, unspecified Status: Acute (14) GERD (gastroesophageal reflux disease): Code(s): K21.9 - Gastro-esophageal reflux disease without esophagitis Status: Acute (15) On home O2: Code(s): Z99.81 - Dependence on supplemental oxygen Status: Acute (16) History of coronary artery stent placement: Code(s): Z95.5 - Presence of coronary angioplasty implant and graft Status: Acute DS: Summary Hospital Course Reason for hospitalization: ?chest pain Hospital Course: 09/21/22 - troponin is negative.? Continue to trend - patient has no further complaints of any chest pain.? -echo has been ordered for the patient -Lexiscan has been ordered for the patient. -cardiology has been consulted since he has a histor
[2022-08-28 11:33] LABS: EDCOVIDSCREEN Negative (Negative)
[2022-08-28 11:41] LABS: Glucose Point of Care 131 mg/dl (65-105)
[2022-08-28 14:00] VITALS: BP 115/69; PULSE 75; RESP 16; TEMP 36.1; O2SAT 98
[2022-08-28 16:24] LABS: Glucose Point of Care 132 mg/dl (65-105)
== END 2022-08-28 17:07 | DRG 313 ==
LOC: ANHED 17:52 → ANHIMU 20:55 → ANH3MEDSUR 08-24 18:35
PROVIDERS: Internal Medicine; Nurse Practitioner; Admitting Provider Family Medicine; Emergency Provider Emergency Medicine; PCP Internal Medicine; Visit Provider Hospitalist
DX: R07.89 Other chest pain (principal); R78.81 Bacteremia; J96.11 Chronic respiratory failure with hypoxia; B95.7 Other staphylococcus as the cause of diseases classified elsewhere; Z20.822 Contact with and (suspected) exposure to COVID-19; I44.4 Left anterior fascicular block; I45.10 Unspecified right bundle-branch block; J44.9 Chronic obstructive pulmonary disease, unspecified; I25.10 Atherosclerotic heart disease of native coronary artery without angina pectoris; I10 Essential (primary) hypertension; F03.90 Unspecified dementia, unspecified severity, without behavioral disturbance, psychotic disturbance, mood disturbance, and anxiety; E78.5 Hyperlipidemia, unspecified; N40.0 Benign prostatic hyperplasia without lower urinary tract symptoms; E11.9 Type 2 diabetes mellitus without complications; K21.9 Gastro-esophageal reflux disease without esophagitis; L40.9 Psoriasis, unspecified; Z66 Do not resuscitate; L30.9 Dermatitis, unspecified; Z99.81 Dependence on supplemental oxygen; Z95.5 Presence of coronary angioplasty implant and graft; Z86.73 Personal history of transient ischemic attack (TIA), and cerebral infarction without residual deficits; Z85.038 Personal history of other malignant neoplasm of large intestine; Z90.49 Acquired absence of other specified parts of digestive tract; Z87.891 Personal history of nicotine dependence; I25.2 Old myocardial infarction
CPT/HCPCS: 36415; 36569; 36600; 71045; 78452; 80048; 80053; 80202; 82565; 82728; 82805; 82948; 83036; 83615; 83690; 83735; 83880; 84100; 84145; 84443; 84484; 85025; 85027; 85055; 85380; 85610; 85730; 86140; 87040; 87147; 87181; 87186; 87426; 87502; 93005; 93017; 94640; 96365; 96366; 96375; 96376; 99285; A9270; A9502; C1751; C8929; C9803; G0378; J1170; J1630; J1815; J2785; J3370; Q9957; U0003; U0005

== ENCOUNTER 2022-11-03 21:51 | Emergency (ER) | payer MEDICARE, MEDICAID, SELFPAY ==
--- NOTE | 2022-11-03 22:04 | ECG_ITS ---
Measurements Intervals [place] Rate: 78 P: 256 CT: 158 QRS: -85 QRSD: 189 T: 18 QT: 467 QTc: 532 Interpretive Statements ECTOPIC ATRIAL RHYTHM RIGHT BUNDLE BRANCH BLOCK LEFT ANTERIOR FASCICULAR BLOCK BASELINE WANDER- II, AVR, AVL, AVF, V1, V3 ABNORMAL ECG COMPARED TO ECG 08/21/2022 15:48:19 ECTOPIC ATRIAL RHYTHM NOW PRESENT RIGHT BUNDLE-BRANCH BLOCK NOW PRESENT Electronically Signed On 11-06-2022 11:52:12 LOSS CONTROL ENGINEER by Bret Mckay D.O.
--- NOTE | 2022-11-03 23:08 | PC.NURSE ---
daughter at bedside at this time
--- NOTE | 2022-11-04 00:14 | PC.NURSE ---
Pt's daughter at bedside. This RN asked daughter which home. Pt's daughter states pt's sister Rosette who is POA. This RN called pt's POA who was not informed by long term of pt's condition. Rosette states she is going to contact her brother and call back with a home.
--- NOTE | 2022-11-04 00:39 | ED.CPR ---
HPI - CPR General Chief Complaint: Cardiac Arrest/CPR Stated Complaint: Code Blue Time Seen by Provider: 11/03/22 22:32 Source: EMS Mode of arrival: EMS Limitations: clinical condition History of Present Illness HPI narrative: 67-year-old with history of multiple medical problems was brought in from custodial in full cardiac arrest. As per the EMS patient was found on the floor unresponsive, CPR was initiated by the custodial staff, was later brought to the ER with CPR in progress. As per the EMS patient was in PEA upon arrival patient is unresponsive still remained in PEA after brief CPR he did regain his pulse which sustained for very short period of time. MD complaint: found unresponsive and stopped breathing Timing confirmed by: other (EMS) Place: NH/SNF Bystander CPR performed: Yes Initial findings in the field: unresponsive, no respirations and no pulse ROSC in the field: Yes Associated injuries: Yes Known history of: CAD Treatments prior to arrival: other airway device, chest compressions and epinephrine mgs # (4) Related Data Home Medications Medication Instructions Recorded Confirmed apixaban 5 mg tablet (Eliquis) 5 mg PO BID 08/21/22 08/21/22 atorvastatin 80 mg tablet 80 mg PO DAILY 08/21/22 08/21/22 calcium polycarbophil 625 mg 1,250 mg PO BID 08/21/22 08/21/22 tablet (FiberCon) cholecalciferol (vitamin D3) 50 50 mcg PO DAILY 08/21/22 08/21/22 mcg (2,000 unit) tablet citalopram 20 mg tablet 20 mg PO HS 08/21/22 08/21/22 clopidogrel 75 mg tablet 75 mg PO DAILY 08/21/22 08/21/22 divalproex 500 mg tablet,extended 500 mg PO DAILY 08/21/22 08/21/22 release 24 hr donepezil 10 mg tablet 10 mg PO HS 08/21/22 08/21/22 folic acid 1 mg tablet 1 mg PO DAILY 08/21/22 08/21/22 insulin aspart U-100 100 unit/mL 1 sliding scale dose subcut ACHS 08/21/22 08/21/22 (3 mL) subcutaneous pen (Novolog FlexPen U-100 Insulin aspart) insulin glargine 100 unit/mL (3 28 unit subcut HS 08/21/22 08/21/22 mL) subcutaneous pen (Lantus Solostar U-100 Insulin) isosorbide mononitrate 30 mg 30 mg PO DAILY 08/21/22 08/21/22 tablet,extended release 24 hr [id number] 1 cap PO TIDWMEAL 08/21/22 08/21/22 12,000-38,000-60,000 unit capsule,delayed rel (Creon) memantine 10 mg tablet 10 mg PO BID 08/21/22 08/21/22 omeprazole 20 mg capsule,delayed 20 mg PO DAILY 08/21/22 08/21/22 release oxycodone 5 mg tablet 5 mg PO Q6H PRN Moderate Pain 08/21/22 08/21/22 (Scale Score 5-6) pentoxifylline 400 mg 400 mg PO BID 08/21/22 08/21/22 tablet,extended release ranolazine 500 mg tablet,extended 500 mg PO BID 08/21/22 08/21/22 release,12 hr tamsulosin 0.4 mg capsule 0.4 mg PO HS 08/21/22 08/21/22 trazodone 50 mg tablet 50 mg PO HS 08/21/22 08/21/22 Allergies Allergy/AdvReac Type Severity Reaction Status Date / Time aspirin Allergy Rash Verified 08/15/22 18:17 ibuprofen Allergy Rash Verified 08/15/22 20:10 Penicillins Allergy Rash Verified 08/15/22 18:17 Sulfa (Sulfonamide Allergy Rash Verified 08/15/22 18:17 Antibiotics) tetracycline Allergy Rash Verified 08/21/22 15:49 Review of Systems Review of Systems: ROS unobtainable: Yes unobtainable due to medical condition PMFSH Past Medical History Medical History Chronic respiratory failure with hypoxia Colon cancer COPD (chronic obstructive pulmonary disease) Coronary artery disease CVA (cerebral vascular accident) Dementia Depression DM2 (diabetes mellitus, type 2) Eczema GERD (gastroesophageal reflux disease) HLD (hyperlipidemia) HTN (hypertension) On home O2 Psoriasis Surgical History Surgical History History of appendectomy History of colectomy History of coronary artery stent placement 3 History of tonsillectomy Family History Family History Father Acute myocardial infarction
--- NOTE | 2022-11-04 00:59 | PC.NURSE ---
Daughter cannot decide on home at this time. Provided daughter with ER phone number and instructed her to call as soon as she decides on which home. Daughter verbalized understanding.
--- NOTE | 2022-11-04 02:23 | PC.NURSE ---
Family decided on [facility]. home contacted. Daughter states more family is en route. Will call home back when family leaves.
--- NOTE | 2022-11-04 02:38 | PC.NURSE ---
Spoke with Jori from [facility]. ETA is [phone].
--- NOTE | 2022-11-04 03:43 | PC.NURSE ---
Jori from [facility] home here to take pt at this time
[2022-11-20 15:39] LABS: Glucose Point of Care 283 mg/dl (65-105)
== END 2022-11-04 03:46 | disposition expired ==
PROVIDERS: Emergency Provider Family Medicine; PCP Internal Medicine
DX: I46.9 Cardiac arrest, cause unspecified (principal); J96.11 Chronic respiratory failure with hypoxia; J44.9 Chronic obstructive pulmonary disease, unspecified; I25.10 Atherosclerotic heart disease of native coronary artery without angina pectoris; F32.9 Major depressive disorder, single episode, unspecified; E11.9 Type 2 diabetes mellitus without complications; K21.9 Gastro-esophageal reflux disease without esophagitis; E78.5 Hyperlipidemia, unspecified; I10 Essential (primary) hypertension
CPT/HCPCS: 31500; 82948; 92950; 93005; 99285; J0171; J0282